=== PATIENT | female | born 1945 | race Caucasian/White ===

== ENCOUNTER 2019-02-11 01:30 | Emergency (ER) | payer MEDICARE, OTHER ==
[2019-02-11] MEDS ORDERED: IBUPROFEN 600 MG TAB PO STA (01:49)
[2019-02-11] MEDS ORDERED: ACETAMINOPHEN TAB 325 MG TAB PO STA (01:49)
[2019-02-11] MEDS: SODIUM CHLORIDE 0.9% 500 ML 500 ML IV SCH (02:02)
[2019-02-11 02:13] LABS: Appearance,Urine Cloudy (Clear); Bilirubin,Urine Negative (Negative); Blood,Urine Small (Negative); Color,Urine Light Yellow; Glucose,Urine (UA) Negative (Negative); HCT 43.2 % (34.0-46.0); HGB 13.8 gm/dL (11.4-16.0); Ketones,Urine Negative (Negative); Leukocyte Esterase,Urine Large (Negative); MCH 29.3 pg (25.0-35.0); MCV 91.5 fL (80.0-100.0); Mean Platelet Volume 7.2; Mucus,Urine Rare /hpf; Nitrite,Urine Negative (Negative); Platelet Count 103 k/uL (150-450); Protein,Urine Trace (Negative); RBC 4.72 m/uL (3.80-5.40); RBC,Urine 12 /hpf (0-5); RDW 14.6 % (11.5-15.5); Specific Gravity,Urine 1.011 (1.001-1.035); Squamous Epithelial Cell,Urine <1 /hpf (0-4); Urobilinogen,Urine <2.0 mg/dL (<2.0); WBC,Urine 156 /hpf (0-5)
[2019-02-11 02:15] LABS: Calcium 10.5 mg/dL (8.4-10.2); Potassium 4.5 mmol/L (3.5-5.1); Total Bilirubin 0.6 mg/dL (0.2-1.3); Total Protein 6.6 g/dL (6.3-8.2)
[2019-02-11 02:46] VITALS: BP 139/75; PULSE 101; RESP 18; TEMP 100.6
[2019-02-11 03:02] LABS: Lymphocytes # (M) 0.56 k/uL (1.0-4.8); Monocytes # (M) 0.72 k/uL (0-1.0); Neutrophils # (M) 6.72 k/uL (1.3-7.7); Neutrophils % (M) 84 %; Nucleated Red Blood Cells 0 /100 WBC (0-0); Total Cells Counted 100
[2019-02-11] MEDS ORDERED: SODIUM CHLORIDE 0.9% 1,000 ML IV ONE (03:18)
--- NOTE | 2019-02-11 03:26 | ED ---
Fever HPI - General Chief Complaint: Fever Stated Complaint: back pain Time Seen by Provider: 02/11/19 01:49 Source: patient, EMS Mode of arrival: EMS Limitations: no limitations - History of Present Illness Initial Comments: Michelle relatively healthy 74-year-old female who presents to the emergency department today for evaluation of concern for urinary tract infection and fever. Patient reports she was recently on an antibiotic for urinary tract infection, she states antibiotics or with the T but she can't remove her the name of and denies was trimethoprim. Patient reports that despite finishing antibiotics yesterday she still has urinary frequency dysuria and pain in her lower abdomen. Today she developed a fever and was concerned that she may have a kidney infection which prompted her to come to the ER for evaluation. was able to provide the antibiotic pill bottle, patient reports that she actually been prescribed for her gums due to an oral infection but was told she could take for urinary tract infection. Prescription was clindamycin. - Related Data Previous Rx's Medication Instructions Recorded Sulfamethox-Tmp 800-160Mg [Bactrim 1 tab PO Q12HR #14 tab 02/11/19 DS 800-160 mg] Allergies Allergy/AdvReac Type Severity Reaction Status Date / Time meperidine [From Demerol] AdvReac Unknown Verified 02/11/19 01:40 Review of Systems ROS Statement: Those systems with pertinent positive or pertinent negative responses have been documented in the HPI. ROS Other: All systems not noted in ROS Statement are negative. Past Medical History Past Medical History: CVA/TIA, Hyperlipidemia, Hypertension, Myocardial Infarction (OR) History of Any Multi-Drug Resistant Organisms: None Reported Past Surgical History: Coronary Bypass/CABG, Orthopedic Surgery Additional Past Surgical History / Comment(s): Partial right knee Smoking Status: Never smoker Past Alcohol Use History: None Reported Past Drug Use History: None Reported General Exam - General Exam Comments Initial Comments: Physical Exam GENERAL: Patient is well-developed and well-nourished. Patient is nontoxic and well- hydrated and is in no distress. HENT: Normocephalic, Atraumatic. EYES: PERRL, EOMI PULMONARY: Unlabored respirations. No audible rales rhonchi or wheezing was noted. CARDIOVASCULAR: There is a regular rate and rhythm without any murmurs gallops or rubs. ABDOMEN: Soft and nontender with normal bowel sounds. Tenderness to percussion of the flank SKIN: Skin is clear with no lesions or rashes and otherwise unremarkable. : Deferred NEUROLOGIC: Patient is alert and oriented x3. Moving all extremities spontaneously MUSCULOSKELETAL: Normal extremities with adequate strength and full range of motion. No lower extremity swelling or edema. No calf tenderness. PSYCHIATRIC: Normal psychiatric evaluation Limitations: no limitations Course Vital Signs 02/11/19 02/11/19 02/11/19 01:32 02:03 02:30 Temperature 100.5 F H 102.5 F H 100.6 F H Pulse Rate 108 H 101 H Respiratory 20 18 Rate Blood Pressure 159/79 139/75 O2 Sat by Pulse 95 95 Oximetry Medical Decision Making - Medical Decision Making The patient was seen and evaluated history is obtained from the patient and family at bedside 74-year-old female with a history of recurrent urinary tract infections was recently on antibiotics now presenting with persistent symptoms fever and one episode of vomiting prior to arrival patient does report that she has had GI upset due to being on antibiotics. Sepsis workup was initiated Tylenol Motrin IV fluids were ordered Urinalysis consistent with urinary tract infection culture was obtained and Rocephin was ordered was reevaluated, fevers 98.7 orally heart rates in the 90s, patient's feeling much better. Again I did offer the patient to stay in the hospital for further evaluation however she preferred to be discharged at this time. Patient will be prescribed Bactrim for urinary tract infection. Patient encouraged to follow up with her primary care physician by the end of the week for repeat urinalysis. Return parameters discussed with patient and all questions pertaining care answered patient discharged home in stable condition. - Lab Data Result diagrams: 02/11/19 01:55 02/11/19 01:55 Lab Results 02/11/19 02/11/19 02/11/19 Range/Units 01:55 01:55 01:55 WBC 8.0 (3.8-10.6) k/uL RBC 4.72 (3.80-5.40) m/uL Hgb 13.8 (11.4-16.0) gm/dL Hct 43.2 (34.0-46.0) % MCV 91.5 (80.0-100.0) fL MCH 29.3 (25.0-35.0) pg MCHC 32.0 (31.0-37.0) g/dL RDW 14.6 (11.5-15.5) % Plt Count 103 L (150-450) k/uL Neutrophils % (Manual) 84 % Lymphocytes % (Manual) 7 % Monocytes % (Manual) 9 % Neutrophils # (Manual) 6.72 (1.3-7.7) k/uL Lymphocytes # (Manual) 0.56 L (1.0-4.8) k/uL Monocytes # (Manual) 0.72 (0-1.0) k/uL Nucleated RBCs 0 (0-0) /100 WBC Manual Slide Review Performed PT (9.0-12.0) sec INR (<1.2) APTT (22.0-30.0) sec Sodium 138 (137-145) mmol/L Potassium 4.5 (3.5-5.1) mmol/L Chloride 109 H (98-107) mmol/L Carbon Dioxide 20 L (22-30) mmol/L Anion Gap 9 mmol/L BUN 25 H (7-17) mg/dL Creatinine 0.93 (0.52-1.04) mg/dL Est GFR (CKD-EPI)AfAm 72 (>60 ml/min/1.73 sqM) Est GFR (CKD-EPI)NonAf 62 (>60 ml/min/1.73 sqM) Glucose 120 H (74-99) mg/dL Plasma Lactic Acid Riccardo 2.1 H* (0.7-2.0) mmol/L Calcium 10.5 H (8.4-10.2) mg/dL Total Bilirubin 0.6 (0.2-1.3) mg/dL AST 46 H (14-36) U/L ALT 45 (9-52) U/L Alkaline Phosphatase 153 H (38-126) U/L Total Protein 6.6 (6.3-8.2) g/dL Albumin 4.0 (3.5-5.0) g/dL Urine Color Urine Appearance (Clear) Urine pH (5.0-8.0) Ur Specific [place] (1.001-1.035) Urine Protein (Negative) Urine Glucose (UA) (Negative) Urine Ketones (Negative) Urine Blood (Negative) Urine Nitrite (Negative) Urine Bilirubin (Negative) Urine Urobilinogen (<2.0) mg/dL Ur Leukocyte Esterase (Negative) Urine RBC (0-5) /hpf Urine WBC (0-5) /hpf Ur Squamous Epith Cells (0-4) /hpf Urine Mucus (None) /hpf 02/11/19 02/11/19 Range/Units 01:55 02:55 WBC (3.8-10.6) k/uL RBC (3.80-5.40) m/uL Hgb (11.4-16.0) gm/dL Hct (34.0-46.0) % MCV (80.0-100.0) fL MCH (25.0-35.0) pg MCHC (31.0-37.0) g/dL RDW (11.5-15.5) % Plt Count (150-450) k/uL Neutrophils % (Manual) % Lymphocytes % (Manual) % Monocytes % (Manual) % Neutrophils # (Manual) (1.3-7.7) k/uL Lymphocytes # (Manual) (1.0-4.8) k/uL Monocytes # (Manual) (0-1.0) k/uL Nucleated RBCs (0-0) /100 WBC Manual Slide Review PT 10.5 (9.0-12.0) sec INR 1.0 (<1.2) APTT 21.0 L (22.0-30.0) sec Sodium (137-145) mmol/L Potassium (3.5-5.1) mmol/L Chloride (98-107) mmol/L Carbon Dioxide (22-30) mmol/L Anion Gap mmol/L BUN (7-17) mg/dL Creatinine (0.52-1.04) mg/dL Est GFR (CKD-EPI)AfAm (>60 ml/min/1.73 sqM) Est GFR (CKD-EPI)NonAf (>60 ml/min/1.73 sqM) Glucose (74-99) mg/dL Plasma Lactic Acid Riccardo (0.7-2.0) mmol/L Calcium (8.4-10.2) mg/dL Total Bilirubin (0.2-1.3) mg/dL AST (14-36) U/L ALT (9-52) U/L Alkaline Phosphatase (38-126) U/L Total Protein (6.3-8.2) g/dL Albumin (3.5-5.0) g/dL Urine Color Light Yellow Urine Appearance Cloudy H (Clear) Urine pH 7.0 (5.0-8.0) Ur Specific [place] 1.011 (1.001-1.035) Urine Protein Trace H (Negative) Urine Glucose (UA) Negative (Negative) Urine Ketones Negative (Negative) Urine Blood Small H (Negative) Urine Nitrite Negative (Negative) Urine Bilirubin Negative (Negative) Urine Urobilinogen <2.0 (<2.0) mg/dL Ur Leukocyte Esterase Large H (Negative) Urine RBC 12 H (0-5) /hpf Urine WBC 156 H (0-5) /hpf Ur Squamous Epith Cells <1 (0-4) /hpf Urine Mucus Rare H (None) /hpf - EKG Data -: EKG Interpreted by Me EKG shows normal: sinus rhythm Rate: tachycardia EKG Comments: EKG was ordered for evaluation of tachycardia, EKG obtained at 1:45 AM, rate is 108 rhythm is sinus tachycardia, there is leftward axis there are normal intervals, IN 156, QRS 104, QTC 308, QTC 412 there are no acute ST elevations or depressions there are T-wave inversions in V5 and V6 no evidence of acute ischemia or infarction. Disposition Clinical Impression: UTI (urinary tract infection) Disposition: HOME SELF-CARE Condition: Stable Instructions (If sedation given, give patient instructions): Urinary Tract Infection in Women (DC), Fever in Adults (ED) Prescriptions: Sulfamethox-Tmp 800-160Mg [Bactrim DS 800-160 mg] 1 tab PO Q12HR #14 tab Is patient prescribed a controlled substance at d/c from ED?: No Referrals: Michael Mobley MD [Primary Care Provider] - 1-2 days
[2019-02-11 03:28] LABS: Prothrombin Time 10.5 sec (9.0-12.0)
== END 2019-02-11 04:55 | disposition home or self-care (01) ==
LOC: EC 01:30
DX: N39.0 Urinary tract infection, site not specified (principal); R00.0 Tachycardia, unspecified; K30 Functional dyspepsia; T36.8X5A Adverse effect of other systemic antibiotics, initial encounter; I25.2 Old myocardial infarction; Z88.5 Allergy status to narcotic agent; Z95.1 Presence of aortocoronary bypass graft; Z86.73 Personal history of transient ischemic attack (TIA), and cerebral infarction without residual deficits
CPT/HCPCS: 99284; 96360; 96361 ×2; 36415; 93005; 80053; 83605; 85025; 85610; 85730; 81001; 87040; 87086; 87077; 87186; J0696

== ENCOUNTER → 2019-03-14 | Outpatient (CLI) | payer MEDICARE, OTHER ==
--- NOTE | 2019-03-15 00:10 | US ---
EXAMINATION TYPE: US pelvic complete DATE OF EXAM: 03/14/2019 COMPARISON: NONE CLINICAL HISTORY: 74-year-old female R10.2 PELVIC PAIN. TECHNIQUE: Transvaginal (TV) and Transabdominal (TA) . Transabdominal sonographic images of the pel vis were acquired. Transvaginal sonographic images were medically necessary to better assess the fol lowing anatomy: Ovaries Date of LMP: 1983 FINDINGS: EXAM MEASUREMENTS: Uterus: Surgically absent Right Ovary: not visualized, probably due to atrophy Left Ovary: not visualized, probably due to atrophy 1. Uterus: Surgically absent 2. Endometrium: Surgically absent 3. Right Ovary: not visualized, due to probable atrophy 4. Left Ovary: not visualized, due to probable atrophy 5. Bilateral Adnexa: wnl 6. Posterior cul-de-sac: wnl IMPRESSION: 1. Status post post hysterectomy. 2. Neither ovary could be visualized, likely small and atrophic in this postmenopausal female. 3. No pelvic free fluid.
== END | disposition home or self-care (01) ==
LOC: RADUSWWP 15:52
PROVIDERS: ATTEND Obstetrics & Gynecology
DX: R10.2 Pelvic and perineal pain (principal); Z90.710 Acquired absence of both cervix and uterus
CPT/HCPCS: 76856

== ENCOUNTER → 2019-10-17 | Outpatient (CLI) | payer MEDICARE, OTHER ==
--- NOTE | 2019-10-17 13:37 | US ---
EXAMINATION TYPE: US venous doppler duplex LE LT DATE OF EXAM: 10/17/2019 1:07 PM COMPARISON: NONE CLINICAL HISTORY: M25.562 Pain Left Knee, M23.8x2 Other internal.... Left knee pain SIDE PERFORMED: Left TECHNIQUE: The lower extremity deep venous system is examined utilizing real time linear array sonog messi with graded compression, doppler sonography and color-flow sonography. VESSELS IMAGED: External Iliac Vein (EIV) Common Femoral Vein Deep Femoral Vein Greater Saphenous Vein * Femoral Vein Popliteal Vein Small Saphenous Vein * Proximal Calf Veins (* superficial vessels) Grayscale, color doppler, spectral doppler imaging performed of the deep veins of the lower extremiti es. There is normal flow, compressibility, vascular waveforms. Left Leg: Negative for DVT IMPRESSION: No sonographic evidence of deep venous thrombosis within the left lower extremity.
--- NOTE | 2019-10-17 14:20 | CT ---
EXAMINATION TYPE: CT lower extremity LT wo con DATE OF EXAM: 10/17/2019 COMPARISON: None. HISTORY: Left knee pain and internal derangement. CT DLP: 200 mGycm Automated exposure control for dose reduction was used. FINDINGS: Localizer shows metallic hardware from right knee rolando-plasty procedure. Left knee shows moderate to severe narrowing with joint space sclerosis and mild spurring medial tibi al femoral compartment. There is some subchondral cystic change medial tibial plateau measuring 6 mm transversely by 9 mm AP diameter on image 23 and sagittal image 13. Mild tibial condylar spurring. Mild narrowing centrally lateral tibiofemoral compartment. Osseous structures somewhat demineralized. Moderate narrowing and mild to moderate spurring patellofe moral compartment. There is additional spur from the anterior superior patella at distal quadriceps t endon attachment. There is fairly moderate sized suprapatellar joint effusion. No popliteal cyst. Distal quadriceps and patellar tendon are intact. Hoffa's fat pad is maintained. IMPRESSION: As above.
== END | disposition home or self-care (01) ==
LOC: RADUSWWP 12:46
PROVIDERS: ATTEND Family Medicine
DX: M81.0 Age-related osteoporosis without current pathological fracture (principal); M25.462 Effusion, left knee; M25.862 Other specified joint disorders, left knee; M23.8X2 Other internal derangements of left knee; M79.605 Pain in left leg

== ENCOUNTER → 2020-10-12 | Outpatient (CLI) | payer MEDICARE, OTHER ==
[2020-10-12 12:43] LABS: HCT 44.6 % (34.0-46.0); HGB 14.4 gm/dL (11.4-16.0); MCH 30.8 pg (25.0-35.0); MCHC 32.3 g/dL (31.0-37.0); MCV 95.3 fL (80.0-100.0); Platelet Count 237 k/uL (150-450); RBC 4.68 m/uL (3.80-5.40); RDW 13.6 % (11.5-15.5); WBC 7.2 k/uL (3.8-10.6)
[2020-10-12 12:53] LABS: Albumin 4.2 g/dL (3.5-5.0); Calcium 10.5 mg/dL (8.4-10.2); Potassium 4.7 mmol/L (3.5-5.1); Total Bilirubin 0.5 mg/dL (0.2-1.3); Total Protein 7.1 g/dL (6.3-8.2)
[2020-10-12 13:09] LABS: Partial Thromboplastin Time 22.9 sec (22.0-30.0); Prothrombin Time 10.5 sec (9.0-12.0)
[2020-10-12 19:12] LABS: Appearance,Urine Clear (Clear); Bilirubin,Urine Negative (Negative); Blood,Urine Negative (Negative); Color,Urine Light Yellow; Glucose,Urine (UA) Negative (Negative); Ketones,Urine Negative (Negative); Leukocyte Esterase,Urine Small (Negative); Nitrite,Urine Negative (Negative); PH, Urine 6.5 (5.0-8.0); Protein,Urine Negative (Negative); RBC,Urine <1 /hpf (0-5); Specific Gravity,Urine 1.008 (1.001-1.035); Squamous Epithelial Cell,Urine 1 /hpf (0-4); Urobilinogen,Urine <2.0 mg/dL (<2.0); WBC,Urine 1 /hpf (0-5)
== END | disposition home or self-care (01) ==
LOC: LABPAT 10:53
PROVIDERS: ATTEND Orthopaedic Surgery
DX: Z01.818 Encounter for other preprocedural examination (principal); Z01.812 Encounter for preprocedural laboratory examination
CPT/HCPCS: 36415; 80053; 81001; 85027; 85610; 85730; 87070

== ENCOUNTER 2020-10-27 07:47 | Day surgery (SDC) | payer MEDICARE, OTHER ==
[2020-10-22 15:24] VITALS: BMI 26.9
[~2020-10-27 07:47] MED LIST: ACETAMINOPHEN TAB 500 MG TAB PO PRN; DEXAMETHASONE SOD PHOSPHATE 4 MG/ML 1 ML VIAL IV ONE; GABAPENTIN 300 MG CAP PO PRN; HYDROmorphone 0.5 MG/0.5 ML SYRINGE IVP PRN; MELOXICAM 7.5 MG TAB PO PRN; MIDAZOLAM 2 MG/2 ML VIAL IV PRN; ONDANSETRON 4 MG/2 ML VIAL IVP ONE; TRANEXAMIC ACID 1,000 MG in SODIUM CHLORIDE 0.9% 100 ML IVPB PRN
[2020-10-27] MEDS: LACTATED RINGERS 1,000 ML IV SCH ×2 (08:46→22:30)
[2020-10-27] MEDS ORDERED: MIDAZOLAM 2 MG/2 ML VIAL IV ONE (08:53)
[2020-10-27] MEDS ORDERED: TRANEXAMIC ACID 1,000 MG/10 ML VIAL ONE (09:00)
[2020-10-27] MEDS ORDERED: fentaNYL (PF) 50 MCG/ML 2 ML AMP ONE (09:00)
[2020-10-27] MEDS ORDERED: SODIUM CHLORIDE 0.9% 100 ML BAG ONE (09:00)
[2020-10-27] MEDS ORDERED: PROPOFOL 10 MG/ML 20 ML VIAL IV ONE (09:00)
[2020-10-27] MEDS ORDERED: ceFAZolin 3,000 MG in SODIUM CHLORIDE 0.9% IRRIGATIO 3,000 ML IRRIGATION ONE (09:07)
[2020-10-27] MEDS ORDERED: bisacodyL 10 MG SUPP RECTAL PRN (09:13)
[2020-10-27] MEDS ORDERED: HYDROmorphone 0.2 MG/1 ML SYRINGE IVP PRN (09:13)
[2020-10-27] MEDS ORDERED: HYDROmorphone 0.5 MG/0.5 ML SYRINGE IVP PRN ×2 (09:13)
[2020-10-27] MEDS ORDERED: HYDROcodone/APAP 5-325MG 1 EACH TAB PO PRN (09:13)
[2020-10-27] MEDS ORDERED: NALOXONE 0.4 MG/ML 1 ML VIAL IV PRN ×2 (09:13→09:22)
[2020-10-27] MEDS ORDERED: ONDANSETRON 4 MG/2 ML VIAL IVP PRN (09:13)
[2020-10-27] MEDS ORDERED: NA PHOS,M-B/NA PHOS,DI-BA 133 ML ENEMA RECTAL PRN (09:13)
[2020-10-27] MEDS ORDERED: MAGNESIUM HYDROXIDE 2,400 MG/10 ML CUP PO PRN (09:13)
--- NOTE | 2020-10-27 09:24 | P.ANPRN ---
Procedure Note - Anesthesia - Nerve Block Performed Left Adductor Canal Infusion Time Out Performed: Yes Date of Procedure: 10/27/20 Procedure Start Time: 08:52 Procedure Stop Time: 09:00 Location of Patient: PreOp Indication: Acute Post-Operative Pain, Analgesia, Requested by Surgeon Sedation Type: Sedate with meaningful contact maintained Preparation: Sterile Prep Position: Supine Catheter: Indwelling Needle Types: Pajunk Needle Gauge: 21 Ultrasound used to visualize needle placement: Yes Ultrasound used to observe medication spread: Yes Injectate: 0.5% Ropivacaine (see comment for volume) Blood Aspirated: No Pain Paresthesia on Injection Noted: No Resistance on Injection: Normal Image Stored and Saved: Yes Events: Uneventful and Well Tolerated
[2020-10-27] MEDS: ROPIVACAINE 246.25 MG, EPINEPHrine 0.5 MG, KETOROLAC 30 MG, cloNIDine HCL/PF 80 MCG, WA... MISCELLANE PRN ×10 (09:31→09:50)
--- NOTE | 2020-10-27 10:12 | P.OP ---
Date of Procedure: 10/27/20 Preoperative Diagnosis: Severe osteoarthritis left knee Postoperative Diagnosis: Severe osteoarthritis left knee Procedure(s) Performed: Left total knee arthroplasty Implants: Peña [employer] Nephew Journey II CR Oxinium cruciate retaining femoral component size 4, left [employer]ña [employer] Journey nonporous tibial baseplate size 3, left [employer]ña [employer] Journey II, XLPE Deep Dished articular insert, size 11 mm, Size 3-4, left [employer]ña [employer] Journey Kathrin II resurfacing patellar component, oval, 29 mm All components were cemented using Palacos R bone cement The articulation is Oxinium on polyethylene Anesthesia: spinal Surgeon: Jase Barrett Heel Padder #1: Mariza Amaro Estimated Blood Loss (ml): 30 Pathology: other (Bone and cartilage) Condition: stable Disposition: PACU Indications for Procedure: After failure of conservative treatment we discussed the surgical and nonsurgical treatment options at length. Patient wishes to proceed with a total knee arthroplasty. Complications specific to this procedure were discussed at length, including but not limited to infection, bleeding, stiffness, and nerve injury. Covid-19 was also discussed at length with the patient, and they are aware of the current policies and procedures. The patient was given the option of delaying surgery, but they elect to proceed knowing these risks. Patient is aware of all these complications and informed consent was obtained Operative Findings: The operative findings are consistent with severe osteoarthritis of the left knee Description of Procedure: Patient was seen in the preoperative area and the consent was reviewed and the operative site was marked with a skin marker. The patient verified the procedure and the operative site. An adductor canal pain catheter was placed by anesthesia in the preoperative area. The patient was then brought to the operating room and given preoperative antibiotics intravenously. A gram of transexamic acid was given intravenously. A spinal anesthetic was administered by the anesthesia department. A tourniquet was placed on the upper thigh and the lower extremity was prepped with chlorhexidine and draped in usual sterile fashion. A universal timeout was then performed which confirmed the patient's name, surgical site, ALLERGIES, and consent. The lower extremity was then exsanguinated and tourniquet was inflated to 250 mmHg. A standard anterior midline approach to the knee was performed. The skin and subcutaneous tissue were sharply dissected down to the patellar tendon. A medial parapatellar arthrotomy was then performed. The knee was then extended, the patellar was everted, and the knee was again flexed. The infra-patellar fat pad was removed in order to enhance exposure. The anterior horns of both menisci were excised, and a release was performed to the posterior medial aspect of the knee. On gross visual inspection, there was complete loss of articular cartilage in the medial and patellofemoral joint spaces. There was also significant cartilage damage in the lateral compartment. There were multiple periarticular osteophytes globally about the knee which were then removed with a Ronguer. The femoral canal was then opened with the 9.5 mm intramedullary drill. The 8 mm intramedullary ronnie was then inserted into the femoral canal with the distal femoral cutting guide set for 5 of valgus. The distal femoral cutting block was then pinned in place. The intramedullary ronnie was then removed, and the distal femur was then cut. The cutting block was then removed and the cut was checked for symmetry. The resected bone was then measured to confirm the appropriate distal femoral resection. Next, the sizing guide was then placed and set for 3 external rotation based off of the epicondylar axis and Whitesides line. Pins were then placed and the drill holes, and the femur was sized with the sizing stylus. The pins were then removed, and the sizing guide was then removed. The spikes of the femoral block was then placed into the predrilled holes, and malleted into place. Two 45 mm pins were then placed into the fixation holes on the cutting block. An luis wing was then used to ensure there would be no notching with the anterior cut. The anterior condyles were cut without notching. The anterior chord cut was then performed, followed by the posterior cut, posterior chamfer cut, and the anterior chamfer cut. The collateral ligaments were protected during the entire process. The cutting block was then removed. Any remaining bone and osteophytes were removed from the femur with a Rominger. The femoral canal was plugged with autologous bone. Attention was then directed to the tibia. The remaining ACL was removed with a Ronguer, and the tibia was then gently subluxed forward with a large bent knee retractor. Any remaining menisci were excised. The posterior lateral corner was cauterized in order to coagulate the lateral geniculate artery. The extra medullary tibial cutting guide was then placed, set for the appropriate rotation, slope, and depth of resection. The proximal tibia cutting guide was then pinned in place. Proximal tibia was then cut and sized. The femoral trial was placed. A narrow saw blade was then used to remove the anterior intracondylar femoral bone. The CR notch trial was then placed. The tibial trial was placed with the appropriate-sized insert. The knee was able to fully extend and flex to 130 and was stable throughout all range of motion. The knee was then extended and the patella was everted. Patella was then measured, and then using an osteotomy guide, the patella was cut at the appropriate level. The patella was then measured and drilled and the patella trial was then placed. The knee was then taken through range of motion with the patella trial and the patella tracked normally using the no thumbs technique.. The knee was then extended patella trial was then removed and the patella was everted. Knee was then flexed and lug holes were drilled through the femoral trial and the femoral trial was then removed. The tibial was then re-exposed, and the tibial broach guide was then pinned in place after it was set for the appropriate rotation to allow for the most coverage without overhang. The tibia was then reamed and broached. The cut surfaces of bone were then irrigated with pulsatile lavage. The posterior structures were injected with the ropivacaine solution. The knee was also irrigated with Irrisept solution. The components were then opened, the cement was mixed, and the components were then cemented in place. The cement was allowed to harden with the knee in full extension. While the cement was hardening, the remaining soft tissues were then injected with a ropivacaine so lution, which consisted of 246.25 mg of ropivacaine, 0.5 mg of epinephrine, 30 mg of Toradol, 80 g of clonidine, and 48.45 mL of sterile water, for a total of 100 mL of fluid injected. After the cemented hardened. The tourniquet was released, and hemostasis was obtained. A second gram of transexamic acid was given intravenously. The knee was again irrigated. The knee was again taken through range of motion and found to be stable throughout all range of motion of 0-130, and the patella tracked normally. The fascia was then closed with 0 Vicryl followed by #2 strata fix suture. The subcutaneous tissue was closed with 3-0 Vicryl and 3-0 strata fix. Exofin glue was used for the skin and placed with the knee in flexion. After the glue had dried, and Optafoam silver impregnated dressing was applied. The patient was then transferred to recovery room in stable condition. The drafter assistant YG Benoit was required due the complexity surgery and the need for a skilled news production assistant. She assisted in positioning, draping, retraction, and closure of the wound.
[2020-10-27] MEDS ORDERED: ROPIVACAINE 0.2%-NS ON-Q PUMP 1,090 MG, EMPTY PAIN BALL 1 EACH MISCELLANE PRN (10:59)
--- NOTE | 2020-10-27 11:01 | XR ---
Left knee history: Status post knee arthroplasty 2 views of the left knee Patient is status post left knee arthroplasty. There is anatomic alignment. Lucency is present in the soft tissues. Surgical clips are present in the medial soft tissues. IMPRESSION: Orthopedic follow-up
[2020-10-27] MEDS: SODIUM CHLORIDE 0.9% 1,000 ML IV SCH ×2 (11:53→22:30)
[2020-10-27] MEDS ORDERED: LORazepam 1 MG TAB PO PRN (16:57)
[2020-10-27] MEDS: CALCIUM CARBONATE 500 MG CHEWABLE PO PRN ×2 (17:11→22:28)
[2020-10-27] MEDS: ASPIRIN 81 MG PO SCH (20:16)
[2020-10-27] MEDS: METOPROLOL TARTRATE 25 MG TAB PO SCH (20:16)
[2020-10-27] MEDS ORDERED: ATORVASTATIN 40 MG TAB PO SCH (21:00)
[2020-10-27] MEDS ORDERED: SENNOSIDES-DOCUSATE SODIUM 1 EACH TAB PO SCH (21:00)
[2020-10-28] MEDS: HYDROcodone/APAP 5-325MG 1 EACH TAB PO PRN ×3 (00:56→12:24)
--- NOTE | 2020-10-28 06:31 | P.PN ---
Progress Note - Text Progress Note Date: 10/28/20 Patient's postop day 1 from total knee replacement left side. Pain overnight has been controlled. She has used as needed pain medications for posterior knee pain. She also has pain over the anterior portion of the lower extremity. Ice is been helping. She's been able to ambulate. Pain pump is in place. Puncture site is clean and dry.
[2020-10-28] MEDS: METOPROLOL TARTRATE 25 MG TAB PO SCH (07:00)
[2020-10-28] MEDS: ASPIRIN 81 MG PO SCH (07:00)
[2020-10-28] MEDS: CALCIUM CARBONATE 500 MG CHEWABLE PO PRN (07:01)
[2020-10-28 07:44] VITALS: BP 154/74; PULSE 66; RESP 20; TEMP 97.6
--- NOTE | 2020-10-28 08:48 | P.DS ---
Providers Expected date of discharge: 10/28/20 Attending physician: Jase Barrett Consults: 10/27/20 09:13 Consult Physician Routine Consulting Provider: Jose Francisco Penaloza Consult Reason/Comments: medical management Do you want consulting provider notified?: Yes Primary care physician: Jase Ceballos - Discharge Diagnosis(es) (1) Osteoarthritis of left knee Current Visit: Yes Status: Acute (2) Status post total left knee replacement Current Visit: Yes Status: Acute Hospital Course: This is a 75-year-old female with known history of degenerative arthritis of the left knee. The patient presented for evaluation as an outpatient. After discussion and consideration patient elects to proceed with total knee arthroplasty. The patient is seen preoperatively by Dr. Barrett and medically cleared for surgery by their primary care physician. Patient is admitted to [facility] on 10/27/2020 for total knee arthroplasty. The procedure is performed without complication or sequelae. The patient is doing well postoperatively. Labs and vital signs are stable on day of discharge. On day of discharge patient's knee incision is healing well. There is minimal erythema. There is no drainage noted at this time. There is minimal soft tissu e swelling to the knee. Patient has full foot and ankle motion without difficulty or pain. Calf is soft and nontender to palpation. Neurovascular status to the left lower extremity is intact. Patient is discharged home in good condition. Opioid start talking form is reviewed and signed. Please see med rec for accurate list of home medications. Plan - Discharge Summary Discharge Rx Participant: Yes New Discharge Prescriptions: New Aspirin 325 mg PO BID #60 tab HYDROcodone/APAP 5-325MG [[place] 5-325] 1 - 2 tab PO Q6HR PRN #48 tab PRN Reason: Pain Sennosides [Senokot] 2 tab PO DAILY PRN #60 tablet PRN Reason: Constipation No Action Famotidine [Pepcid] 40 mg PO DAILY Atorvastatin [Lipitor] 40 mg PO HS amLODIPine [Norvasc] 2.5 mg PO 1600 Metoprolol Tartrate [Lopressor] 25 mg PO BID Cholecalciferol [Vitamin D3 (25 Mcg = 1000 Iu)] 25 mcg PO DAILY Aspirin 81 mg PO DAILY Clopidogrel Bisulfate [Plavix] 75 mg PO DAILY LORazepam [Ativan] 1 mg PO BID PRN PRN Reason: Anxiety Multivitamins, Thera [Multivitamin (formulary)] 1 tab PO DAILY Calcium Citrate/Vitamin D3 [Citracal + D Maximum Caplet] 1 each PO DAILY Nitrofurantoin Monohyd/M-Cryst [Macrobid] 100 mg PO WE Fluticasone Nasal [place] [Flonase Nasal [place]] 1 spray EA NOSTRIL HS PRN PRN Reason: allergies Mag Hydrox/Aluminum Hyd/Simeth [Mylanta Maximum Strength Liq] 0 ml PO DIRECTED PRN PRN Reason: Heartburn Discharge Medication List Aspirin 81 mg PO DAILY 04/22/20 [History] Atorvastatin [Lipitor] 40 mg PO HS 04/22/20 [History] Cholecalciferol [Vitamin D3 (25 Mcg = 1000 Iu)] 25 mcg PO DAILY 04/22/20 [History] Clopidogrel Bisulfate [Plavix] 75 mg PO DAILY 04/22/20 [History] Famotidine [Pepcid] 40 mg PO DAILY 04/22/20 [History] LORazepam [Ativan] 1 mg PO BID PRN 04/22/20 [History] Metoprolol Tartrate [Lopressor] 25 mg PO BID 04/22/20 [History] amLODIPine [Norvasc] 2.5 mg PO 1600 04/22/20 [History] Calcium Citrate/Vitamin D3 [Citracal + D Maximum Caplet] 1 each PO DAILY 10/22/20 [History] Multivitamins, Thera [Multivitamin (formulary)] 1 tab PO DAILY 10/22/20 [History] Nitrofurantoin Monohyd/M-Cryst [Macrobid] 100 mg PO WE 10/22/20 [History] Fluticasone Nasal [place] [Flonase Nasal [place]] 1 spray EA NOSTRIL HS PRN 10/26/20 [History] Mag Hydrox/Aluminum Hyd/Simeth [Mylanta Maximum Strength Liq] 0 ml PO DIRECTED PRN 10/26/20 [History] Aspirin 325 mg PO BID #60 tab 10/28/20 [Rx] HYDROcodone/APAP 5-325MG [[place] 5-325] 1 - 2 tab PO Q6HR PRN #48 tab 10/28/20 [Rx] Sennosides [Senokot] 2 tab PO DAILY PRN #60 tablet 10/28/20 [Rx] Follow up Appointment(s)/Referral(s): [facility], [NON-STAFF] - Jase Barrett DO [Doctor of Osteopathic Medicine] - 2 Weeks Activity/Diet/Wound Care/Special Instructions: Weightbearing as tolerated with a walker. CPM 5-6h daily as tolerated. Leave dressing intact. May be removed by home care nurse or by patient in 10 days. May shower with dressing on. Recommend use of compression stockings daily until follow up to help prevent swelling and blood clots. May remove at night before sleeping. Please take aspirin 325mg twice daily for 30 days to prevent blood clots. Please follow up with [facility] and call with any questions or concerns, . Discharge Disposition: HOME WITH HOME HEALTH SERVICES
[2020-10-28] MEDS ORDERED: CALCIUM CARB-VIT D 500 MG-5 MCG TAB PO SCH (09:00)
[2020-10-28] MEDS ORDERED: CHOLECALCIFEROL 25 MCG (1000 IU) TABLET PO SCH (09:00)
[2020-10-28] MEDS ORDERED: FAMOTIDINE 20 MG TAB PO SCH (09:00)
[2020-10-28] MEDS ORDERED: MULTIVITAMINS, THERA 1 EACH TAB PO SCH (09:00)
[2020-10-28] MEDS ORDERED: CLOPIDOGREL 75 MG TAB PO SCH (09:00)
[2020-10-28 11:21] LABS: HCT 31.8 % (37.2-46.3); MCH 30.7 pg (27.0-32.0); MCHC 31.4 g/dL (32.0-37.0); MCV 97.5 fL (80.0-97.0); Mean Platelet Volume 10.2 fL (9.5-12.2); Platelet Count 230 X 10*3/uL (140-440); RBC 3.26 X 10*6/uL (4.10-5.20); RDW 13.3 % (11.5-14.5)
--- NOTE | 2020-10-28 13:32 | P.CONS ---
History of Present Illness - History of Present Illness This is a pleasant 75 years old female with past medical history of hypertens ion, hyperlipidemia, osteoarthritis, CVA, history of ESBL UTI. Coronary artery disease status post CABG. He was admitted for elective left knee arthroplasty for her severe osteoarthritis that failed outpatient medical therapy. I saw the patient after the procedure and she is already been discharged by orthopedic team She was sitting in chair comfortable with no distress. She denies chest pain or dyspnea on no abdominal pain. She has chronic constipation. Her pain at the surgical site is controlled. Vital signs stable and she has mild leukocytosis of 13 K and mild anemia with hemoglobin 10 which is expected from surgery Review of Systems CONSTITUTIONAL: No fever, no malaise, no fatigue. HEENT: No recent visual problems or hearing problems. Denied any sore throat. CARDIOVASCULAR: No orthopnea, PND, no palpitations, no syncope. PULMONARY: No shortness of breath, no cough, no hemoptysis. GASTROINTESTINAL: No diarrhea, no nausea, no vomiting, no abdominal pain. Normoactive bowel sounds. NEUROLOGICAL: No headaches, no weakness, no numbness. HEMATOLOGICAL: Denies any bleeding or petechiae. GENITOURINARY: Denies any burning micturition, frequency, or urgency. MUSCULOSKELETAL/RHEUMATOLOGICAL: Denies any joint pain, swelling, or any muscle pain. ENDOCRINE: Denies any polyuria or polydipsia. Past Medical History Past Medical History: CVA/TIA, Hyperlipidemia, Hypertension, Myocardial Infarction (DE), Osteoarthritis (OA) Additional Past Medical History / Comment(s): Hx CVA-2013-no residual,stomach ulcer,chronic uti's Last Myocardial Infarction Date:: 2013 History of Any Multi-Drug Resistant Organisms: ESBL Year Discovered:: 02/11/19 MDRO Source:: urine ESBL Past Surgical History: Coronary Bypass/CABG, Hysterectomy, Orthopedic Surgery, Tonsillectomy Additional Past Surgical History / Comment(s): Partial right knee,CABG 2 014,partial hyst. Past Anesthesia/Blood Transfusion Reactions: No Reported Reaction Additional Past Anesthesia/Blood Transfusion Reaction / Comm: no problems with prior blood transfusion Past Psychological History: Anxiety Smoking Status: Never smoker Past Alcohol Use History: None Reported Past Drug Use History: None Reported - Past Family History Mother Family Medical History: Cancer Additional Family Medical History / Comment(s): breast CA,heart problems Father Additional Family Medical History / Comment(s): heart problems Medications and Allergies Home Medications Medication Instructions Recorded Confirmed Type Aspirin 81 mg PO DAILY 04/22/20 10/22/20 History Atorvastatin [Lipitor] 40 mg PO HS 04/22/20 10/22/20 History Cholecalciferol [Vitamin D3 (25 25 mcg PO DAILY 04/22/20 10/22/20 History Mcg = 1000 Iu)] Clopidogrel Bisulfate [Plavix] 75 mg PO DAILY 04/22/20 10/22/20 History Famotidine [Pepcid] 40 mg PO DAILY 04/22/20 10/22/20 History LORazepam [Ativan] 1 mg PO BID PRN 04/22/20 10/22/20 History Metoprolol Tartrate [Lopressor] 25 mg PO BID 04/22/20 10/22/20 History amLODIPine [Norvasc] 2.5 mg PO 1600 04/22/20 10/22/20 History Calcium Citrate/Vitamin D3 1 each PO DAILY 10/22/20 10/22/20 History [Citracal + D Maximum Caplet] Multivitamins, Thera [Multivitamin 1 tab PO DAILY 10/22/20 10/22/20 History (formulary)] Nitrofurantoin Monohyd/M-Cryst 100 mg PO WE 10/22/20 10/22/20 History [Macrobid] Fluticasone Nasal [place] [Flonase 1 spray EA NOSTRIL HS PRN 10/26/20 10/26/20 History Nasal [place]] Mag Hydrox/Aluminum Hyd/Simeth 0 ml PO DIRECTED PRN 10/26/20 10/26/20 History [Mylanta Maximum Strength Liq] Aspirin [Adult Low Dose Aspirin EC] 81 mg PO BID 30 Days #60 tablet. 10/28/20 Rx HYDROcodone/APAP 5-325MG [[place] 1 - 2 tab PO Q6HR PRN #48 tab 10/28/20 Rx 5-325] Sennosides [Senokot] 2 tab PO DAILY PRN #60 tablet 10/28/20 Rx Allergies Allergy/AdvReac Type Severity Reaction Status Date / Time meperidine [From Demerol] AdvReac hypotension Verified 10/27/20 08:09 Physical Exam Vitals: Vital Signs Temp Pulse Resp BP Pulse Ox 10/28/20 07:43 97.6 F 66 20 154/74 92 L 10/28/20 01:20 97.4 F L 75 16 139/74 94 L 10/27/20 19:08 98.0 F 71 17 138/76 96 Intake and Output 10/27/20 10/28/20 10/28/20 22:59 06:59 14:59 Other: Voiding Method Toilet Toilet # Voids 1 2 1 GENERAL: The patient is alert and oriented x3, not in any acute distress. Well developed, well nourished. HEENT: Pupils are round and equally reacting to light. EOMI. No scleral icterus. No conjunctival pallor. Normocephalic, atraumatic. No pharyngeal erythema. No thyromegaly. CARDIOVASCULAR: S1 and S2 present. No murmurs, rubs, or gallops. PULMONARY: Chest is clear to auscultation, no wheezing or crackles. ABDOMEN: Soft, nontender, nondistended, normoactive bowel sounds. No palpable organomegaly. MUSCULOSKELETAL: No joint swelling or deformity. -EXTREMITIES: No cyanosis, clubbing, or pedal edema. Status post left knee arthroplasty, surgical dressing is in a Place, rest of her examination is deferred to surgery team NEUROLOGICAL: Gross neurological examination did not reveal any focal deficits. SKIN: No rashes. No petechiae Results CBC & Chem 7: 10/28/20 06:17 Labs: Abnormal Lab Results - Last 24 Hours (Table) 10/28/20 Range/Units 06:17 WBC 13.00 H (4.50-10.00) X 10*3/uL RBC 3.26 L (4.10-5.20) X 10*6/uL Hgb 10.0 L (12.0-15.0) g/dL Hct 31.8 L (37.2-46.3) % MCV 97.5 H (80.0-97.0) fL MCHC 31.4 L (32.0-37.0) g/dL Assessment and Plan Assessment: Left knee arthroplasty for her left knee osteoarthritis that failed outpatient therapy Reactive leukocytosis secondary to surgery, no signs or symptoms of active infection, no need antibiotics. Follow-up as an outpatient Mild acute blood loss anemia secondary to surgery with drop of hemoglobin from 14 down to 10. Follow-up as an outpatient. Patient is asymptomatic currently Hypertension Hyperlipidemia History of ESBL UTI History of Coronary artery disease status post CABG Plan: This is a pleasant 75 years old female who presents with elective left knee arthroplasty. Monitor WBC as an outpatient. No need for antibiotics. Monitor hemoglobin. Patient is being discharged today by orthopedic team Labs and medication were reviewed.. Continue same treatment. Continue with symptomatic treatment. Resume home medication. Monitor lytes and vitals. DVT and GI prophylaxis as per primary team. Further recommendations depends on the clinical course of the patient Recommend patient follow up with PCP in one week and patient was instructed with the same Discussed with staff Thank you for consulting us, feel free to contact us for any further question or clarification
[2020-10-28 13:40] LABS: Basophils # (A) 0.02 X 10*3/uL (0.00-0.10); Basophils % (A) 0.2 %; Eosinophils # (A) 0.01 X 10*3/uL (0.04-0.35); Eosinophils % (A) 0.1 %; Lymphocytes # (A) 1.13 X 10*3/uL (0.90-5.00); Lymphocytes % (A) 8.7 %; Monocytes # (A) 1.55 X 10*3/uL (0.20-1.00); Monocytes % (A) 11.9 %; Neutrophils # (A) 10.25 X 10*3/uL (1.80-7.70); Neutrophils % (A) 78.8 %
[2020-10-28] MEDS ORDERED: amLODIPine 2.5 MG TAB PO SCH (16:00)
== END 2020-10-28 13:12 | disposition home health service (06) ==
LOC: OR 07:47 → 4SSUR 10:39 → OR 10-28 13:12
PROVIDERS: ATTEND Orthopaedic Surgery
DX: M17.12 Unilateral primary osteoarthritis, left knee (principal); M25.762 Osteophyte, left knee; D62 Acute posthemorrhagic anemia; D72.828 Other elevated white blood cell count; I25.10 Atherosclerotic heart disease of native coronary artery without angina pectoris; I11.9 Hypertensive heart disease without heart failure; E78.2 Mixed hyperlipidemia; F41.9 Anxiety disorder, unspecified; I25.2 Old myocardial infarction; Z88.5 Allergy status to narcotic agent; Z95.1 Presence of aortocoronary bypass graft; Z86.73 Personal history of transient ischemic attack (TIA), and cerebral infarction without residual deficits; Z79.82 Long term (current) use of aspirin; Z79.899 Other long term (current) drug therapy; Z79.02 Long term (current) use of antithrombotics/antiplatelets; Z90.710 Acquired absence of both cervix and uterus; Z96.651 Presence of right artificial knee joint; Z82.49 Family history of ischemic heart disease and other diseases of the circulatory system; Z86.19 Personal history of other infectious and parasitic diseases; Z80.3 Family history of malignant neoplasm of breast; Z87.440 Personal history of urinary (tract) infections; Z87.11 Personal history of peptic ulcer disease
CPT/HCPCS: 97110; 97161; 64448; 76942; 85025; 88300; 73560; 27447; C1713; C1776; J2250; J0171; J1100; J0690 ×3; J2405; J3010; J1885; J2795 ×2; J2704; J0735

== ENCOUNTER → 2020-11-11 | Outpatient (CLI) | payer MEDICARE, OTHER ==
--- NOTE | 2020-11-11 17:06 | US ---
EXAMINATION TYPE: US venous doppler duplex LE LT DATE OF EXAM: 11/11/2020 3:24 PM COMPARISON: NONE CLINICAL HISTORY: 75-year-old female Pain L knee M25.562, I80.9 plebitis/thrombophlebitis. Left knee surgery 9 days ago. On blood thinners. Swelling. SIDE PERFORMED: Left TECHNIQUE: The lower extremity deep venous system is examined utilizing real time linear array sonog messi with graded compression, doppler sonography and color-flow sonography. FINDINGS: VESSELS IMAGED: Common Femoral Vein Deep Femoral Vein Greater Saphenous Vein * Femoral Vein Popliteal Vein Small Saphenous Vein * Proximal Calf Veins (* superficial vessels) Left Leg: Negative for DVT IMPRESSION: No evidence for DVT within the left lower extremity imaged from the groin to the upper calf.
== END | disposition home or self-care (01) ==
LOC: RADUSWWP 15:06
PROVIDERS: ATTEND Orthopaedic Surgery
DX: M25.562 Pain in left knee (principal); E78.5 Hyperlipidemia, unspecified; I10 Essential (primary) hypertension; Z47.1 Aftercare following joint replacement surgery; Z96.652 Presence of left artificial knee joint; I80.9 Phlebitis and thrombophlebitis of unspecified site

== ENCOUNTER → 2021-05-26 | Outpatient (CLI) | payer MEDICARE, OTHER ==
--- NOTE | 2021-05-31 09:20 | MM ---
Reason for exam: screening (asymptomatic). Last mammogram was performed 1 year and 10 months ago. History: Family history of breast cancer in mother at age 80. Benign stereotactic core biopsy of the right breast. Physical Findings: A clinical breast exam by your physician is recommended on an annual basis and results should be correlated with mammographic findings. MG 3D Screening Mammo W/Cad Bilateral CC and MLO view(s) were taken. Prior study comparison: July 22, 2019, mammogram, performed at [facility]. April 02, 2018, mammogram, performed at [facility]. The breast tissue is heterogeneously dense. This may lower the sensitivity of mammography. Previous mammotome biopsy in the right breast. There is chronic nodularity in the right breast. No significant changes when compared with prior studies. ASSESSMENT: Benign, BI-RAD 2 RECOMMENDATION: Routine screening mammogram of both breasts in 1 year. Patient should continue monthly self breast exams. A negative report should not preclude additional follow up of suspicious palpable abnormalities.
== END | disposition home or self-care (01) ==
LOC: RADMAMWWP 11:05
PROVIDERS: ATTEND Obstetrics & Gynecology
DX: Z12.31 Encounter for screening mammogram for malignant neoplasm of breast (principal); Z80.3 Family history of malignant neoplasm of breast
CPT/HCPCS: 77063; 77067

== ENCOUNTER → 2021-11-15 | Outpatient (CLI) | payer MEDICARE, OTHER ==
--- NOTE | 2021-11-15 17:15 | XR ---
Lumbosacral spine HISTORY: Low back pain, left leg radiculopathy 5 views of lumbosacral spine, no comparisons Bone mineralization is reduced. There is multilevel spondylosis. Loss of disc height is greatest at L 5-S1 with associated vacuum phenomenon. Sclerosis is present in the posterior elements of the lumbar spine. Lumbar vertebral bodies show preserved height and alignment. No evident spondylolysis. There i s a slight dextro scoliosis centered at L3. IMPRESSION: Degenerative disc disease and facet arthropathy, osteopenia and scoliosis.
== END | disposition home or self-care (01) ==
LOC: RADXRYALE 13:32
PROVIDERS: ATTEND Family Medicine
DX: M51.16 Intervertebral disc disorders with radiculopathy, lumbar region (principal); M47.26 Other spondylosis with radiculopathy, lumbar region; M85.88 Other specified disorders of bone density and structure, other site; M41.86 Other forms of scoliosis, lumbar region
CPT/HCPCS: 72110

== ENCOUNTER → 2022-02-28 | Outpatient (CLI) | payer MEDICARE, OTHER ==
--- NOTE | 2022-02-28 15:54 | XR ---
Left foot HISTORY: Left foot pain 3 views of left foot Bone mineralization, joint spaces and alignment are maintained. Digits are flexed which could limit e valuation. There is osteoarthritic change at the tarsometatarsal joint of the first digit, associated soft tissue swelling is present. There is a small plantar calcaneus spur. No fracture or dislocation . IMPRESSION: Osteoarthritis.
== END | disposition home or self-care (01) ==
LOC: RADXRYALE 11:20
PROVIDERS: ATTEND Family Medicine
DX: M19.072 Primary osteoarthritis, left ankle and foot (principal)

== ENCOUNTER → 2022-05-31 | Outpatient (CLI) | payer MEDICARE, OTHER ==
--- NOTE | 2022-06-06 19:56 | MM ---
Reason for Exam: Screening (asymptomatic). Last screening mammogram was performed 12 month(s) ago. Patient History: Menarche at age 14. First Full-Term at age 23. Hysterectomy at age 36. Postmenopausal. Patient has history of breast feeding. Benign Stereotactic Core Biopsy on the right side. Mother had breast cancer, age 80. Risk Values: [place] 5 year model risk: 4.0%. NCI Lifetime model risk: 8.5%. Prior Study Comparison: 04/02/2018 Screening Mammogram, [facility]. 07/22/2019 Screening Mammogram, [facility]. 05/26/2021 Bilateral Screening Mammogram, [facility]. Tissue Density: The breast tissue is heterogeneously dense. This may lower the sensitivity of mammography. Findings: Analyzed By CAD. Benign vascular calcifications. Microclip right breast with an associated chronic area of nodularity lower quadrant right breast. No significant change from prior exams. Overall Assessment: Benign, BI-RAD 2 Management: Screening Mammogram of both breasts in 1 year. 1. Patient should continue monthly self breast exams. 2. A clinical breast exam by your physician is recommended on an annual basis. 3. This exam should not preclude additional follow-up of suspicious palpable abnormalities. Electronically signed and approved by: Irving Monroy M.D. Radiologist
== END | disposition home or self-care (01) ==
LOC: RADMAMWWP 09:53
PROVIDERS: ATTEND Obstetrics & Gynecology
DX: Z12.31 Encounter for screening mammogram for malignant neoplasm of breast (principal); Z78.0 Asymptomatic menopausal state; Z80.3 Family history of malignant neoplasm of breast; Z98.890 Other specified postprocedural states
CPT/HCPCS: 77063; 77067

== ENCOUNTER → 2022-06-30 | Outpatient (CLI) | payer MEDICARE, OTHER ==
[2022-06-30 19:28] LABS: Basophils # (A) 0.04 X 10*3/uL (0.00-0.10); Basophils % (A) 0.5 %; Eosinophils # (A) 0.13 X 10*3/uL (0.04-0.35); Eosinophils % (A) 1.8 %; HCT 41.9 % (37.2-46.3); HGB 13.8 g/dL (12.0-15.0); Immature Grans, Automated 0.3 %; Lymphocytes # (A) 1.47 X 10*3/uL (0.90-5.00); Lymphocytes % (A) 20.1 %; MCH 30.7 pg (27.0-32.0); MCHC 32.9 g/dL (32.0-37.0); MCV 93.1 fL (80.0-97.0); Mean Platelet Volume 10.1 fL (9.5-12.2); Monocytes # (A) 0.75 X 10*3/uL (0.20-1.00); Monocytes % (A) 10.3 %; NRBC Per 100 WBC 0 /100 WBCS (0.0-0.0); Platelet Count 283 X 10*3/uL (140-440); RDW 14.1 % (11.5-14.5); WBC 7.31 X 10*3/uL (4.50-10.00)
[2022-06-30 19:34] LABS: ALT 34 U/L (8-44); AST 27 U/L (13-35); African American GFR (CKD) 63.8 (60.0-200.0); Albumin 4.5 g/dL (3.8-4.9); Albumin/Globulin Ratio 1.88 (1.60-3.17); Alkaline Phosphatase 148 U/L (41-126); Blood Urea Nitrogen 18.3 mg/dL (9.0-27.0); Calcium 10.3 mg/dL (8.7-10.3); Carbon Dioxide 23.3 mmol/L (20.0-27.5); Chloride 103 mmol/L (96-109); Chol/HDL Ratio 3.48 Ratio; Globulin 2.4 g/dL (1.6-3.3); Glucose 107 mg/dL (70-110); LDL Cholesterol,Calculated 75.6 mg/dL (0.0-131.0); Non-African American GFR(CKD) 55.1 (60.0-200.0); Potassium 4.8 mmol/L (3.5-5.5); Sodium 139 mmol/L (135-145); Total Protein 6.9 g/dL (6.2-8.2)
== END | disposition home or self-care (01) ==
LOC: LABWHC1 10:57
PROVIDERS: ATTEND Internal Medicine Cardiovascular Disease
DX: I11.9 Hypertensive heart disease without heart failure (principal); I25.10 Atherosclerotic heart disease of native coronary artery without angina pectoris; I34.0 Nonrheumatic mitral (valve) insufficiency; I69.30 Unspecified sequelae of cerebral infarction; I65.22 Occlusion and stenosis of left carotid artery; E78.2 Mixed hyperlipidemia; R00.1 Bradycardia, unspecified; Z79.899 Other long term (current) drug therapy
CPT/HCPCS: 36415; 80053; 80061; 84443; 85025

== ENCOUNTER → 2022-08-03 | Outpatient (CLI) | payer MEDICARE, OTHER ==
--- NOTE | 2022-08-03 20:00 | CT ---
EXAMINATION TYPE: CT abdomen wo con CT DLP: 297.9 mGycm, Automated exposure control for dose reduction was used. DATE OF EXAM: 08/03/2022 5:43 PM COMPARISON: None CLINICAL INDICATION:Female, 77 years old with history of R10.812 LEFT UPPER QUADRANT A,R10.13,K21.00, K59.09; Epigastric and lower quadrant abdominal pain. Constipation and heart burn TECHNIQUE: Axial CT of the abdomen . Sagittal and coronal reformats were created on a separate works tation. Contrast used: None Oral contrast used: with Oral Contrast FINDINGS: LOWER CHEST: Heart is mildly enlarged for size. ABDOMEN LIVER: Unremarkable GALLBLADDER AND BILE DUCTS: Unremarkable. PANCREAS: Unremarkable. SPLEEN: Unremarkable. ADRENAL GLANDS: Unremarkable. KIDNEYS AND URETERS: No evidence of hydronephrosis or renal calculus. The ureters are unremarkable. STOMACH AND BOWEL: No evidence of bowel obstruction. Moderate hiatal hernia. Scattered clonic diverti cula present. PERITONEUM: No evidence of pneumoperitoneum or free fluid. VASCULATURE: No evidence of aortic aneurysm. Atherosclerosis of the arterial vasculature. MUSCULOSKELETAL: No acute osseous abnormalities, multilevel disc degeneration changes throughout the spine. LYMPH NODES: No gross evidence for lymphadenopathy. SOFT TISSUE/ABDOMINAL WALL: Small fat-containing umbilical hernia. IMPRESSION: 1. No evidence for acute abdominal process. 2. Mild colonic diverticulosis.
== END | disposition home or self-care (01) ==
LOC: RADCTMAIN 16:46
PROVIDERS: ATTEND Family Medicine
DX: K21.00 Gastro-esophageal reflux disease with esophagitis, without bleeding (principal); K57.30 Diverticulosis of large intestine without perforation or abscess without bleeding; K59.09 Other constipation; R10.812 Left upper quadrant abdominal tenderness
CPT/HCPCS: 74150; Q9967

== ENCOUNTER 2022-08-20 05:08 | Observation (INO) | payer MEDICARE, OTHER ==
[2022-08-20 05:12] VITALS: RESP 18
[2022-08-20] MEDS ORDERED: MORPHINE SULFATE 4 MG/ML SYRINGE IV STA (05:53)
[2022-08-20] MEDS ORDERED: SODIUM CHLORIDE 0.9% 1,000 ML IV STA (05:53)
[2022-08-20] MEDS ORDERED: PANTOPRAZOLE 40 MG/10 ML VIAL IVP STA (05:53)
[2022-08-20] MEDS ORDERED: ONDANSETRON 4 MG/2 ML VIAL IVP STA (05:53)
--- NOTE | 2022-08-20 05:55 | ED ---
Nausea/Vomiting/Diarrhea HPI - General Source: patient, RN notes reviewed, old records reviewed Mode of arrival: ambulatory Limitations: no limitations - History of Present Illness MD complaint: nausea, vomiting, diarrhea, abdominal pain, other (blood in stool) -: days(s) Description of Vomiting: watery Description of Diarrhea: mucous Associated Abdominal Pain: Yes Location: diffuse Radiation: none Severity: moderate Severity scale (1-10): 4 Consistency: intermittent Improves with: none Worsens with: none Associated Symptoms: loss of appetite, nausea/vomiting, weakness <Jose Luis Beck - Last Filed: 08/20/22 07:06> <Jose Luis Rocha - Last Filed: 08/20/22 08:33> - General Chief complaint: Nausea/Vomiting/Diarrhea Stated complaint: Vomiting - History of Present Illness Initial comments: This is a 77-year-old female DF for evaluation. Patient is multiple complaints including abdominal pain nausea vomiting and diarrhea. No recent antibiotic use no fevers. No brittle bodyaches and pains. Patient is no travel history no significant sick contacts or patients of family members with similar complaintpatient states that shoulder stomach in the past but no significant surgeries patient is also having blood in stool having clots with some bright red bleeding. Originally started with some constipation unchanged to diarrhea and then changed to blood (Jose Luis Beck) - Related Data Home Medications Medication Instructions Recorded Confirmed Aspirin 81 mg PO DAILY 04/22/20 10/22/20 Atorvastatin [Lipitor] 40 mg PO HS 04/22/20 10/22/20 Cholecalciferol [Vitamin D3 (25 25 mcg PO DAILY 04/22/20 10/22/20 Mcg = 1000 Iu)] Clopidogrel Bisulfate [Plavix] 75 mg PO DAILY 04/22/20 10/22/20 Famotidine [Pepcid] 40 mg PO DAILY 04/22/20 10/22/20 LORazepam [Ativan] 1 mg PO BID PRN 04/22/20 10/22/20 Metoprolol Tartrate [Lopressor] 25 mg PO BID 04/22/20 10/22/20 amLODIPine [Norvasc] 2.5 mg PO 1600 04/22/20 10/22/20 Calcium Citrate/Vitamin D3 1 each PO DAILY 10/22/20 10/22/20 [Citracal + D Maximum Caplet] Multivitamins, Thera [Multivitamin 1 tab PO DAILY 10/22/20 10/22/20 (formulary)] Nitrofurantoin Monohyd/M-Cryst 100 mg PO WE 10/22/20 10/22/20 [Macrobid] Fluticasone Nasal [place] [Flonase 1 spray EA NOSTRIL HS PRN 10/26/20 10/26/20 Nasal [place]] Mag Hydrox/Aluminum Hyd/Simeth 0 ml PO DIRECTED PRN 10/26/20 10/26/20 [Mylanta Maximum Strength Liq] Previous Rx's Medication Instructions Recorded Aspirin [Adult Low Dose Aspirin EC] 81 mg PO BID 30 Days #60 tablet. 10/28/20 HYDROcodone/APAP 5-325MG [[place] 1 - 2 tab PO Q6HR PRN #48 tab 10/28/20 5-325] Sennosides [Senokot] 2 tab PO DAILY PRN #60 tablet 10/28/20 Allergies Allergy/AdvReac Type Severity Reaction Status Date / Time meperidine [From Demerol] AdvReac hypotension Verified 08/20/22 05:12 Review of Systems ROS Other: All systems not noted in ROS Statement are negative. <Jose Luis Beck - Last Filed: 08/20/22 07:06> ROS Other: All systems not noted in ROS Statement are negative. <Jose Luis Rocha - Last Filed: 08/20/22 08:33> ROS Statement: Those systems with pertinent positive or pertinent negative responses have been documented in the HPI. Past Medical History Past Medical History: CVA/TIA, Hyperlipidemia, Hypertension, Myocardial Infarction ([place]) Additional Past Medical History / Comment(s): having "trouble with my stomach",CVA-2013-no residual Last Myocardial Infarction Date:: 2013 History of Any Multi-Drug Resistant Organisms: ESBL Date of last positivie culture/infection: 02/11/19 MDRO Source:: urine ESBL Past Surgical History: Coronary Bypass/CABG, Hysterectomy, Orthopedic Surgery, Tonsillectomy Additional Past Surgical History / Comment(s): Partial right knee,CABG 2013 Past Anesthesia/Blood Transfusion Reactions: No Reported Reaction Additional Past Anesthesia/Blood Transfusion Reaction / Comment(s): no problems with prior blood transfusion Past Psychological History: No Psychological Hx Reported Smoking Status: Never smoker Past Alcohol Use History: None Reported Past Drug Use History: None Reported - Past Family History Mother Family Medical History: Cancer Additional Family Medical History / Comment(s): breast CA,heart problems Father Additional Family Medical History / Comment(s): heart problems <Jose Luis Beck - Last Filed: 08/20/22 07:06> General Exam Limitations: no limitations General appearance: alert, in no apparent distress Head exam: Present: atraumatic, normocephalic, normal inspection Eye exam: Present: normal appearance, PERRL, EOMI. Absent: scleral icterus, conjunctival injection, periorbital swelling ENT exam: Present: normal exam, mucous membranes moist Neck exam: Present: normal inspection. Absent: tenderness, meningismus, lymphadenopathy Respiratory exam: Present: normal lung sounds bilaterally. Absent: respiratory distress, wheezes, rales, rhonchi, stridor Cardiovascular Exam: Present: regular rate, normal rhythm, normal heart sounds. Absent: systolic murmur, diastolic murmur, rubs, gallop, clicks GI/Abdominal exam: Present: soft, normal bowel sounds. Absent: distended, tenderness, guarding, rebound, rigid Extremities exam: Present: normal inspection, full ROM, normal capillary refill. Absent: tenderness, pedal edema, joint swelling, calf tenderness Back exam: Present: normal inspection Neurological exam: Present: alert, oriented X3, CN II-XII intact Psychiatric exam: Present: normal affect, normal mood Skin exam: Present: warm, dry, intact, normal color. Absent: rash <Jose Luis Beck - Last Filed: 08/20/22 07:06> Course <Jose Luis Beck - Last Filed: 08/20/22 07:06> Vital Signs 08/20/22 08/20/22 05:09 07:45 Temperature 97.4 F L Pulse Rate 72 66 Respiratory 18 18 Rate Blood Pressure 129/78 151/74 O2 Sat by Pulse 95 95 Oximetry - Reevaluation(s) Reevaluation #1: 08/20/22 05:55 Medical records reviewed (Jose Luis Beck) Reevaluation #2: 08/20/22 06:58 patient symptoms are improved (Jose Luis Beck) Medical Decision Making - Lab Data Result diagrams: 08/20/22 06:23 08/20/22 06:23 <Jose Luis Beck - Last Filed: 08/20/22 07:06> - Lab Data Result diagrams: 08/20/22 06:23 08/20/22 06:23 <Jose Luis Rocha - Last Filed: 08/20/22 08:33> - Medical Decision Making CT of the abdomen and pelvis was interpreted by me. CT showed some inflammation of the colon in the descending and sigmoid colon. I spoke with Dr. Doyle she states that she will be on consult for this patient. I spoke with some physicians agreed to admit the patient admitted the patient wrote admitting orders. (Jose Luis Rocha) - Lab Data Lab Results 08/20/22 08/20/22 08/20/22 Range/Units 06:23 06:23 06:23 WBC 5.7 (3.8-10.6) k/uL RBC 4.37 (3.80-5.40) m/uL Hgb 13.1 (11.4-16.0) gm/dL Hct 40.1 (34.0-46.0) % MCV 91.9 (80.0-100.0) fL MCH 30.1 (25.0-35.0) pg MCHC 32.7 (31.0-37.0) g/dL RDW 13.4 (11.5-15.5) % Plt Count 101 L (150-450) k/uL MPV 8.4 Neutrophils % 85 % Lymphocytes % 8 % Monocytes % 6 % Eosinophils % 1 % Basophils % 0 % Neutrophils # 4.8 (1.3-7.7) k/uL Lymphocytes # 0.4 L (1.0-4.8) k/uL Monocytes # 0.4 (0-1.0) k/uL Eosinophils # 0.0 (0-0.7) k/uL Basophils # 0.0 (0-0.2) k/uL PT 9.8 (9.0-12.0) sec INR 0.9 (<1.2) APTT 19.0 L (22.0-30.0) sec Sodium 135 L (137-145) mmol/L Potassium 4.6 (3.5-5.1) mmol/L Chloride 106 (98-107) mmol/L Carbon Dioxide 20 L (22-30) mmol/L Anion Gap 9 mmol/L BUN 27 H (7-17) mg/dL Creatinine 0.99 (0.52-1.04) mg/dL Est GFR (CKD-EPI)AfAm 65 (>60 ml/min/1.73 sqM) Est GFR (CKD-EPI)NonAf 56 (>60 ml/min/1.73 sqM) Glucose 148 H (74-99) mg/dL Plasma Lactic Acid Riccardo (0.7-2.0) mmol/L Calcium 8.5 (8.4-10.2) mg/dL Total Bilirubin 0.6 (0.2-1.3) mg/dL AST 56 H (14-36) U/L ALT 45 H (4-34) U/L Alkaline Phosphatase 114 (38-126) U/L Total Protein 6.7 (6.3-8.2) g/dL Albumin 4.1 (3.5-5.0) g/dL Amylase 180 H (30-110) U/L Lipase 74 (23-300) U/L 08/20/22 Range/Units 06:23 WBC (3.8-10.6) k/uL RBC (3.80-5.40) m/uL Hgb (11.4-16.0) gm/dL Hct (34.0-46.0) % MCV (80.0-100.0) fL MCH (25.0-35.0) pg MCHC (31.0-37.0) g/dL RDW (11.5-15.5) % Plt Count (150-450) k/uL MPV Neutrophils % % Lymphocytes % % Monocytes % % Eosinophils % % Basophils % % Neutrophils # (1.3-7.7) k/uL Lymphocytes # (1.0-4.8) k/uL Monocytes # (0-1.0) k/uL Eosinophils # (0-0.7) k/uL Basophils # (0-0.2) k/uL PT (9.0-12.0) sec INR (<1.2) APTT (22.0-30.0) sec Sodium (137-145) mmol/L Potassium (3.5-5.1) mmol/L Chloride (98-107) mmol/L Carbon Dioxide (22-30) mmol/L Anion Gap mmol/L BUN (7-17) mg/dL Creatinine (0.52-1.04) mg/dL Est GFR (CKD-EPI)AfAm (>60 ml/min/1.73 sqM) Est GFR (CKD-EPI)NonAf (>60 ml/min/1.73 sqM) Glucose (74-99) mg/dL Plasma Lactic Acid Riccardo 1.1 (0.7-2.0) mmol/L Calcium (8.4-10.2) mg/dL Total Bilirubin (0.2-1.3) mg/dL AST (14-36) U/L ALT (4-34) U/L Alkaline Phosphatase (38-126) U/L Total Protein (6.3-8.2) g/dL Albumin (3.5-5.0) g/dL Amylase (30-110) U/L Lipase (23-300) U/L Disposition <Jose Luis Beck - Last Filed: 08/20/22 07:06> Time of Disposition: 08:33 <Jose Luis Rocha - Last Filed: 08/20/22 08:33> Clinical Impression: Colitis, Acute vomiting Disposition: ADMITTED IP TO THIS HOSP Referrals: Jase Ceballos DO [Primary Care Provider] - 1-2 days
[2022-08-20 06:35] LABS: Basophils % (A) 0 %; Eosinophils % (A) 1 %; HCT 40.1 % (34.0-46.0); HGB 13.1 gm/dL (11.4-16.0); Lymphocytes # (A) 0.4 k/uL (1.0-4.8); Lymphocytes % (A) 8 %; MCH 30.1 pg (25.0-35.0); MCHC 32.7 g/dL (31.0-37.0); MCV 91.9 fL (80.0-100.0); Mean Platelet Volume 8.4; Monocytes # (A) 0.4 k/uL (0-1.0); Monocytes % (A) 6 %; Neutrophils # (A) 4.8 k/uL (1.3-7.7); Neutrophils % (A) 85 %; Platelet Count 101 k/uL (150-450); RBC 4.37 m/uL (3.80-5.40); RDW 13.4 % (11.5-15.5); WBC 5.7 k/uL (3.8-10.6)
[2022-08-20 06:49] LABS: Albumin 4.1 g/dL (3.5-5.0); Calcium 8.5 mg/dL (8.4-10.2); Total Bilirubin 0.6 mg/dL (0.2-1.3); Total Protein 6.7 g/dL (6.3-8.2)
[2022-08-20 06:51] LABS: INR 0.9 (<1.2); Prothrombin Time 9.8 sec (9.0-12.0)
[2022-08-20 06:54] LABS: Potassium 4.6 mmol/L (3.5-5.1)
--- NOTE | 2022-08-20 07:33 | CT ---
EXAMINATION TYPE: CT abdomen pelvis wo con DATE OF EXAM: 08/20/2022 COMPARISON: 08/03/2022 HISTORY: [place] and Diarrhea, pelvic pain, blood in stool CT DLP: 498.8 mGycm Automated exposure control for dose reduction was used. Images obtained from the diaphragm to the floor of the pelvis with no contrast. There is some interstitial infiltrate and subsegmental atelectasis at the lung bases. No pleural effu crissy. Heart is enlarged. No pericardial effusion. There is hiatal hernia. There are small calcified g allstones. Spleen is intact. No evidence of pancreatic mass. There is no adrenal mass. The bile ducts are not dilated. Kidneys show normal size and contour. No hy dronephrosis. Ureters are not dilated. No retroperitoneal adenopathy. The bladder distends smoothly. No inguinal hernia. No free fluid in the pelvis. There are sigmoid diverticula. No diverticulitis. Ap pendix is posterior and appears normal. There is some wall thickening of the mid sigmoid colon and th e descending colon. There is small amount of fluid in the left paracolic gutter. The lumbar vertebrae have normal alignment. No compression fracture. There is narrowing of L5-S1 dis c space. Bony pelvis is intact. The hip joints are intact. IMPRESSION: There is some wall thickening of the descending and sigmoid colon suggestive of some nonspecific coli tis. This appears new compared to old exam. There is colonic diverticulosis without diverticulitis. Hiatal hernia.
[2022-08-20] MEDS ORDERED: SODIUM CHLORIDE 0.9% 1,000 ML IV ONE (08:40)
[2022-08-20] MEDS ORDERED: ONDANSETRON 4 MG/2 ML VIAL IVP PRN (08:43)
[2022-08-20] MEDS ORDERED: SODIUM CHLORIDE 0.9% 1,000 ML IV SCH (08:45)
[2022-08-20 09:47] LABS: HCT 40.2 % (34.0-46.0); HGB 13.2 gm/dL (11.4-16.0); MCH 30.1 pg (25.0-35.0); MCHC 32.8 g/dL (31.0-37.0); MCV 91.8 fL (80.0-100.0); Mean Platelet Volume 8.6; RBC 4.37 m/uL (3.80-5.40); RDW 13.8 % (11.5-15.5); WBC 6.3 k/uL (3.8-10.6)
[2022-08-20 09:55] LABS: Platelet Count 157 k/uL (150-450)
[2022-08-20] MEDS ORDERED: MORPHINE SULFATE 2 MG/ML SYRINGE IVP PRN (10:33)
[2022-08-20 12:46] LABS: Band Neutrophils % 4 %; Lymphocytes # (M) 0.32 k/uL (1.0-4.8); Monocytes # (M) 0.32 k/uL (0-1.0); Neutrophils % (M) 86 %; Nucleated Red Blood Cells 0 /100 WBC (0-0); RBC Morphology Normal; Total Cells Counted 100
[2022-08-20] MEDS ORDERED: LORazepam 1 MG TAB PO PRN (15:19)
--- NOTE | 2022-08-20 15:55 | P.HPIM ---
History of Present Illness H&P Date: 08/20/22 This note will serve his H&P along with discharge summary. Patient is a 77-year-old female with PMH of CVA, hypertension, dyslipidemia, CAD and presents the ED for abdominal pain, nausea and vomiting. Patient reports lower abdominal pain started yesterday. Pain is crampy in nature, 3 out of 10 in severity. Abdominal pain was associated with nausea and one episode of vomiting. She also reported 6 bloody bowel movements, bright red blood along with diarrhea yesterday. These symptoms prompted her to come to the ED. Today, she has had 2 bowel movements which are normal. Patient denies any headache, lower extremity edema, fever chills, cough, chest pain, shortness breath, palpitations, changes in urination. She reports a decreased appetite. She denies any dizziness, numbness/weakness/tingling of the extremities. In the ED, her vital signs are stable. She was afebrile. CBC showed platelet count 101. Hemoglobin of 13.1. INR was 0.9. CMP showed sodium 135, bicarb of 20, BUN of 27, glucose 148, AST 56, ALT of 45 and amylase of 180. Lipase negative. CTAP shows some wall thickening of the descending and sigmoid colon suggestive of colitis. Patient was admitted for observation with surgery consultation. Pertinent positives and negatives as discussed in HPI, a complete review of systems was performed and all other systems are negative. General: non toxic, no distress, appears at stated age Derm: warm, dry Head: atraumatic, normocephalic, symmetric Eyes: EOMI, no lid lag, anicteric sclera Mouth: no lip lesion, mucus membranes moist Cardiovascular: S1S2 reg, no murmur, positive posterior tibial pulse bilateral Lungs: CTA bilateral, no rhonchi, no rales , no accessory muscle use Abdominal: soft, nontender to palpation, no guarding, no appreciable organomegaly Ext: no gross muscle atrophy, no edema, no contractures Neuro: no focal neuro deficits Psych: Alert, oriented, appropriate affect Discharge diagnoses: #Lower GI bleed #Colitis #Prerenal azotemia #Transaminitis Chronic conditions: History of CVA, hypertension, dyslipidemia, CAD Patient has had 2 hemoglobins that have been stable. She has had 2 bowel movements which is described as normal. Patient states that she would like to go home. Her colitis is self-limiting. She is hemodynamically stable. She has no leukocytosis. No indication for antibiotics. She is encouraged hydration by mouth. Her last colonoscopy was 5 years ago, normal. She is advised to follow-up with her PCP after resolution of her colitis for routine surveillance of colon cancer. She is advised to come back to the ED for worsening abdominal pain, intractable nausea and vomiting, bright red blood per rectum. Patient and verbalized understanding of the plan. Past Medical History Past Medical History: CVA/TIA, Hyperlipidemia, Hypertension, Myocardial Infarction ([place]) Additional Past Medical History / Comment(s): having "trouble with my s tomach",CVA-2013-no residual Last Myocardial Infarction Date:: 2013 History of Any Multi-Drug Resistant Organisms: ESBL Date of last positivie culture/infection: 02/11/19 MDRO Source:: urine ESBL Past Surgical History: Coronary Bypass/CABG, Hysterectomy, Orthopedic Surgery, T onsillectomy Additional Past Surgical History / Comment(s): Partial right knee,CABG 2013 Past Anesthesia/Blood Transfusion Reactions: No Reported Reaction Additional Past Anesthesia/Blood Transfusion Reaction / Comment(s): no problems with prior blood transfusion Past Psychological History: No Psychological Hx Reported Smoking Status: Never smoker Past Alcohol Use History: None Reported Past Drug Use History: None Reported - Past Family History Mother Family Medical History: Cancer Additional Family Medical History / Comment(s): breast CA,heart problems Father Additional Family Medical History / Comment(s): heart problems Medications and Allergies Home Medications Medication Instructions Recorded Confirmed Type Atorvastatin [Lipitor] 40 mg PO HS 04/22/20 08/20/22 History Clopidogrel Bisulfate [Plavix] 75 mg PO DAILY 04/22/20 08/20/22 History Famotidine [Pepcid] 40 mg PO DAILY 04/22/20 08/20/22 History LORazepam [Ativan] 1 mg PO BID PRN 04/22/20 08/20/22 History Metoprolol Tartrate [Lopressor] 25 mg PO BID 04/22/20 08/20/22 History Multivitamins, Thera [Multivitamin 1 tab PO DAILY 10/22/20 08/20/22 History (formulary)] Nitrofurantoin Monohyd/M-Cryst 100 mg PO WE 10/22/20 08/20/22 History [Macrobid] Aspirin [Adult Low Dose Aspirin EC] 81 mg PO DAILY 08/20/22 08/20/22 History Cholecalciferol [Vitamin D3 (25 50 mcg PO DAILY 08/20/22 08/20/22 History Mcg = 1000 Iu)] Losartan Potassium [Cozaar] 100 mg PO DAILY 08/20/22 08/20/22 History Pantoprazole [Protonix] 40 mg PO DAILY 08/20/22 08/20/22 History Vitamin B Complex 1 cap PO DAILY 08/20/22 08/20/22 History amLODIPine [Norvasc] 5 mg PO DAILY 08/20/22 08/20/22 History Allergies Allergy/AdvReac Type Severity Reaction Status Date / Time meperidine [From Demerol] AdvReac hypotension Verified 08/20/22 11:40 Physical Exam Vitals: Vital Signs Temp Pulse Resp BP Pulse Ox 08/20/22 12:41 18 08/20/22 11:31 71 18 148/67 95 08/20/22 07:45 66 18 151/74 95 08/20/22 05:09 97.4 F L 72 18 129/78 95 Intake and Output 08/20/22 08/20/22 08/20/22 06:59 14:59 22:59 Other: Weight 68.039 kg Results CBC & Chem 7: 08/20/22 09:16 08/20/22 06:23 Labs: Abnormal Lab Results - Last 24 Hours (Table) 08/20/22 08/20/22 08/20/22 Range/Units 06:23 06:23 06:23 Plt Count 101 L (150-450) k/uL Lymphocytes # 0.4 L (1.0-4.8) k/uL Lymphocytes # (Manual) (1.0-4.8) k/uL APTT 19.0 L (22.0-30.0) sec Sodium 135 L (137-145) mmol/L Carbon Dioxide 20 L (22-30) mmol/L BUN 27 H (7-17) mg/dL Glucose 148 H (74-99) mg/dL AST 56 H (14-36) U/L ALT 45 H (4-34) U/L Amylase 180 H (30-110) U/L 08/20/22 Range/Units 09:16 Plt Count (150-450) k/uL Lymphocytes # (1.0-4.8) k/uL Lymphocytes # (Manual) 0.32 L (1.0-4.8) k/uL APTT (22.0-30.0) sec Sodium (137-145) mmol/L Carbon Dioxide (22-30) mmol/L BUN (7-17) mg/dL Glucose (74-99) mg/dL AST (14-36) U/L ALT (4-34) U/L Amylase (30-110) U/L
[2022-08-20 16:33] VITALS: BP 133/64; PULSE 70; TEMP 98
[2022-08-20] MEDS ORDERED: METOPROLOL TARTRATE 25 MG TAB PO SCH (21:00)
[2022-08-20] MEDS ORDERED: ATORVASTATIN 40 MG TAB PO SCH (21:00)
[2022-08-21] MEDS ORDERED: PANTOPRAZOLE 40 MG TABLET PO SCH (07:30)
[2022-08-21] MEDS ORDERED: amLODIPine 5 MG TAB PO SCH (09:00)
[2022-08-21] MEDS ORDERED: FAMOTIDINE 20 MG TAB PO SCH (09:00)
[2022-08-21] MEDS ORDERED: LOSARTAN 50 MG TAB PO SCH (09:00)
== END 2022-08-20 16:33 | disposition home or self-care (01) ==
LOC: EC 05:08 → 6NMEDSUR 08:43 → 5NMEDONC 14:48
PROVIDERS: ADMIT Family Medicine; ATTEND Family Medicine
DX: K52.9 Noninfective gastroenteritis and colitis, unspecified (principal); I10 Essential (primary) hypertension; E78.5 Hyperlipidemia, unspecified; I25.2 Old myocardial infarction; I25.10 Atherosclerotic heart disease of native coronary artery without angina pectoris; R79.89 Other specified abnormal findings of blood chemistry; R74.01 Elevation of levels of liver transaminase levels; Z86.73 Personal history of transient ischemic attack (TIA), and cerebral infarction without residual deficits; Z95.1 Presence of aortocoronary bypass graft; Z79.82 Long term (current) use of aspirin; Z79.899 Other long term (current) drug therapy; Z79.02 Long term (current) use of antithrombotics/antiplatelets; Z88.5 Allergy status to narcotic agent
CPT/HCPCS: 96376; 96361; 96374; 96375; 99285; 36415; 80053; 82150; 83605; 83690; 85025; 85610; 85730; 74176; G0378; J2270 ×2; J2405; C9113

== ENCOUNTER 2022-08-20 19:21 | Emergency (ER) | payer MEDICARE ==
[2022-08-20] MEDS ORDERED: SODIUM CHLORIDE 0.9% 1,000 ML IV STA (20:11)
[2022-08-20] MEDS ORDERED: PANTOPRAZOLE 40 MG/10 ML VIAL IVP STA (20:11)
[2022-08-20] MEDS ORDERED: MORPHINE SULFATE 4 MG/ML SYRINGE IVP STA (20:13)
[2022-08-20 20:41] LABS: Basophils % (A) 0 %; Eosinophils % (A) 0 %; HCT 39.3 % (34.0-46.0); HGB 12.9 gm/dL (11.4-16.0); Lymphocytes # (A) 0.7 k/uL (1.0-4.8); Lymphocytes % (A) 9 %; MCH 30.8 pg (25.0-35.0); MCHC 32.9 g/dL (31.0-37.0); MCV 93.5 fL (80.0-100.0); Mean Platelet Volume 8.8; Monocytes # (A) 0.6 k/uL (0-1.0); Monocytes % (A) 7 %; Neutrophils # (A) 7.1 k/uL (1.3-7.7); Neutrophils % (A) 82 %; Platelet Count 158 k/uL (150-450); RDW 14.1 % (11.5-15.5); WBC 8.6 k/uL (3.8-10.6)
[2022-08-20 20:49] LABS: INR 0.9 (<1.2)
[2022-08-20 20:51] LABS: Albumin 3.5 g/dL (3.5-5.0); Potassium 4.1 mmol/L (3.5-5.1); Total Bilirubin 0.3 mg/dL (0.2-1.3)
--- NOTE | 2022-08-20 21:42 | ED ---
Abdominal Pain HPI - General Chief Complaint: Abdominal Pain Stated Complaint: Re-Visit rectal bleeding Time Seen by Provider: 08/20/22 20:02 Source: family Mode of arrival: wheelchair Limitations: no limitations - History of Present Illness Initial Comments: Patient is a 77-year-old female who presents to the emergency department for evaluation of rectal bleeding. Patient was evaluated in the emergency department, admitted, and discharged today for colitis. At the time she presented with mild lower abdominal pain, one episode of nausea and vomiting, and multiple episodes of hematochezia. No fever, no leukocytosis. Hemoglobin was stable. Symptoms remained mild. After multiple normal bowel movements patient was discharged. No indication for antibiotics. Patient states she went home in a depend and soon after arriving home there was bleeding from her rectum which covered the depend. It was not fully saturated. Patient became concerned and came back to the emergency department. She reports no change in symptoms currently. No lightheadedness, dizziness, shortness of breath, chest pain. Patient is on Plavix. - Related Data Home Medications Medication Instructions Recorded Confirmed Atorvastatin [Lipitor] 40 mg PO HS 04/22/20 08/20/22 Clopidogrel Bisulfate [Plavix] 75 mg PO DAILY 04/22/20 08/20/22 Famotidine [Pepcid] 40 mg PO DAILY 04/22/20 08/20/22 LORazepam [Ativan] 1 mg PO BID PRN 04/22/20 08/20/22 Metoprolol Tartrate [Lopressor] 25 mg PO BID 04/22/20 08/20/22 Multivitamins, Thera [Multivitamin 1 tab PO DAILY 10/22/20 08/20/22 (formulary)] Aspirin [Adult Low Dose Aspirin EC] 81 mg PO DAILY 08/20/22 08/20/22 Cholecalciferol [Vitamin D3 (25 50 mcg PO DAILY 08/20/22 08/20/22 Mcg = 1000 Iu)] Losartan Potassium [Cozaar] 100 mg PO DAILY 08/20/22 08/20/22 Pantoprazole [Protonix] 40 mg PO DAILY 08/20/22 08/20/22 Vitamin B Complex 1 cap PO DAILY 08/20/22 08/20/22 amLODIPine [Norvasc] 5 mg PO DAILY 08/20/22 08/20/22 Previous Rx's Medication Instructions Recorded HYDROcodone/APAP 5-325MG [[place] 1 tab PO Q6HR PRN 3 Days #12 tab 08/20/22 5-325] Allergies Allergy/AdvReac Type Severity Reaction Status Date / Time meperidine [From Demerol] AdvReac hypotension Verified 08/20/22 19:56 Review of Systems ROS Statement: Those systems with pertinent positive or pertinent negative responses have been documented in the HPI. ROS Other: All systems not noted in ROS Statement are negative. Past Medical History Past Medical History: CVA/TIA, Hyperlipidemia, Hypertension, Myocardial Infarction ([place]) Additional Past Medical History / Comment(s): having "trouble with my stomach",CVA-2013-no residual Last Myocardial Infarction Date:: 2013 History of Any Multi-Drug Resistant Organisms: ESBL Date of last positivie culture/infection: 02/11/19 MDRO Source:: urine ESBL Past Surgical History: Coronary Bypass/CABG, Hysterectomy, Orthopedic Surgery, Tonsillectomy Additional Past Surgical History / Comment(s): Partial right knee,CABG 2013 Past Anesthesia/Blood Transfusion Reactions: No Reported Reaction Additional Past Anesthesia/Blood Transfusion Reaction / Comment(s): no problems with prior blood transfusion Past Psychological History: No Psychological Hx Reported Smoking Status: Never smoker Past Alcohol Use History: None Reported Past Drug Use History: None Reported - Past Family History Mother Family Medical History: Cancer Additional Family Medical History / Comment(s): breast CA,heart problems Father Additional Family Medical History / Comment(s): heart problems General Exam Limitations: no limitations General appearance: alert, in no apparent distress Head exam: Present: atraumatic, normocephalic, normal inspection Respiratory exam: Present: normal lung sounds bilaterally. Absent: respiratory distress, wheezes, rales, rhonchi, stridor Cardiovascular Exam: Present: regular rate, normal rhythm, normal heart sounds. Absent: systolic murmur, diastolic murmur, rubs, gallop, clicks GI/Abdominal exam: Present: soft, normal bowel sounds. Absent: distended, te nderness, guarding, rebound, rigid Rectal exam: Present: hemorrhoids (External), other (No active bleeding.) Neurological exam: Present: alert, oriented X3, CN II-XII intact Psychiatric exam: Present: normal affect, normal mood Skin exam: Present: warm, dry, intact, normal color. Absent: rash Course Vital Signs 08/20/22 08/20/22 08/20/22 19:54 20:25 21:57 Temperature 97.8 F Pulse Rate 80 92 97 Respiratory 18 16 17 Rate Blood Pressure 125/72 149/91 139/71 O2 Sat by Pulse 95 97 100 Oximetry Medical Decision Making - Medical Decision Making This is a revisit for rectal bleeding. Patient well-appearing and in no apparent distress. No fever. Vitals stable. No abdominal tenderness. No active rectal bleeding. Laboratory studies obtained. Hemoglobin is 12.9, minimally decreased from 13.1 previously. Normal coags. Other laboratory studies are relatively unremar kable. Results discussed with patient. Patient has stable hemoglobin, no active bleeding, no anemia symptoms. She is in stable medical condition for discharge. She very hesitant on going home and would like to be admitted for observation. I spoke with Dr. Larsen in detail who declines admission. Patient and I discussed strict return parameters in detail. She will follow-up with her primary care provider. Dr. Mandujano is my attending. - Lab Data Result diagrams: 08/20/22 20:30 08/20/22 20:30 Lab Results 08/20/22 08/20/22 08/20/22 Range/Units 20:30 20:30 20:30 WBC 8.6 (3.8-10.6) k/uL RBC 4.20 (3.80-5.40) m/uL Hgb 12.9 (11.4-16.0) gm/dL Hct 39.3 (34.0-46.0) % MCV 93.5 (80.0-100.0) fL MCH 30.8 (25.0-35.0) pg MCHC 32.9 (31.0-37.0) g/dL RDW 14.1 (11.5-15.5) % Plt Count 158 (150-450) k/uL MPV 8.8 Neutrophils % 82 % Lymphocytes % 9 % Monocytes % 7 % Eosinophils % 0 % Basophils % 0 % Neutrophils # 7.1 (1.3-7.7) k/uL Lymphocytes # 0.7 L (1.0-4.8) k/uL Monocytes # 0.6 (0-1.0) k/uL Eosinophils # 0.0 (0-0.7) k/uL Basophils # 0.0 (0-0.2) k/uL PT (9.0-12.0) sec INR (<1.2) APTT (22.0-30.0) sec Sodium 133 L (137-145) mmol/L Potassium 4.1 (3.5-5.1) mmol/L Chloride 106 (98-107) mmol/L Carbon Dioxide 18 L (22-30) mmol/L Anion Gap 9 mmol/L BUN 20 H (7-17) mg/dL Creatinine 0.88 (0.52-1.04) mg/dL Est GFR (CKD-EPI)AfAm 75 (>60 ml/min/1.73 sqM) Est GFR (CKD-EPI)NonAf 65 (>60 ml/min/1.73 sqM) Glucose 112 H (74-99) mg/dL Plasma Lactic Acid Riccardo 1.1 (0.7-2.0) mmol/L Calcium 8.0 L (8.4-10.2) mg/dL Total Bilirubin 0.3 (0.2-1.3) mg/dL AST 42 H (14-36) U/L ALT 36 H (4-34) U/L Alkaline Phosphatase 110 (38-126) U/L Total Protein 6.0 L (6.3-8.2) g/dL Albumin 3.5 (3.5-5.0) g/dL Lipase 68 (23-300) U/L Blood Type Blood Type Confirm Blood Type Recheck Bld Type Recheck Status Antibody Screen Spec Expiration Date 08/20/22 08/20/22 08/20/22 Range/Units 20:30 20:44 20:54 WBC (3.8-10.6) k/uL RBC (3.80-5.40) m/uL Hgb (11.4-16.0) gm/dL Hct (34.0-46.0) % MCV (80.0-100.0) fL MCH (25.0-35.0) pg MCHC (31.0-37.0) g/dL RDW (11.5-15.5) % Plt Count (150-450) k/uL MPV Neutrophils % % Lymphocytes % % Monocytes % % Eosinophils % % Basophils % % Neutrophils # (1.3-7.7) k/uL Lymphocytes # (1.0-4.8) k/uL Monocytes # (0-1.0) k/uL Eosinophils # (0-0.7) k/uL Basophils # (0-0.2) k/uL PT 10.0 (9.0-12.0) sec INR 0.9 (<1.2) APTT 27.0 (22.0-30.0) sec Sodium (137-145) mmol/L Potassium (3.5-5.1) mmol/L Chloride (98-107) mmol/L Carbon Dioxide (22-30) mmol/L Anion Gap mmol/L BUN (7-17) mg/dL Creatinine (0.52-1.04) mg/dL Est GFR (CKD-EPI)AfAm (>60 ml/min/1.73 sqM) Est GFR (CKD-EPI)NonAf (>60 ml/min/1.73 sqM) Glucose (74-99) mg/dL Plasma Lactic Acid Riccardo (0.7-2.0) mmol/L Calcium (8.4-10.2) mg/dL Total Bilirubin (0.2-1.3) mg/dL AST (14-36) U/L ALT (4-34) U/L Alkaline Phosphatase (38-126) U/L Total Protein (6.3-8.2) g/dL Albumin (3.5-5.0) g/dL Lipase (23-300) U/L Blood Type A Positive Blood Type Confirm A Positive Blood Type Recheck No Previous Record Bld Type Recheck Status CABO Indicated Antibody Screen NEGATIVE Spec Expiration Date 08/23/20222353 Disposition Clinical Impression: Hematochezia, Abdominal pain Disposition: HOME SELF-CARE Condition: Stable Instructions (If sedation given, give patient instructions): Rectal Bleeding (ED) Additional Instructions: Please follow up with your primary care provider. Return to the emergency department experience new, concerning, or worsening symptoms, including but not limited to, increased rectal bleeding, dizziness, lightheadedness, shortness of breath. Is patient prescribed a controlled substance at d/c from ED?: No Referrals: Jase Ceballos DO [Primary Care Provider] - 1-2 days
[2022-08-20 21:45] VITALS: TEMP 97.8
[2022-08-20 21:59] VITALS: BP 139/71; PULSE 97; RESP 17
== END 2022-08-20 21:59 | disposition home or self-care (01) ==
LOC: EC 19:21
DX: K92.1 Melena (principal); I10 Essential (primary) hypertension; I25.2 Old myocardial infarction; E78.5 Hyperlipidemia, unspecified; Z79.02 Long term (current) use of antithrombotics/antiplatelets; Z79.899 Other long term (current) drug therapy; Z79.82 Long term (current) use of aspirin; Z88.5 Allergy status to narcotic agent
CPT/HCPCS: 36415; 86900; 86901; 80053; 83605; 83690; 85025; 85610; 85730; 86850; 99284; 96374; 96375; 96361; J2270; C9113

== ENCOUNTER 2023-06-24 10:31 | Emergency (ER) | payer MEDICARE, OTHER ==
[2023-06-24 10:50] VITALS: BP 167/81; PULSE 56; RESP 18; TEMP 97.9
--- NOTE | 2023-06-24 11:03 | ED ---
General Adult HPI - General Chief complaint: Extremity Injury, Upper Stated complaint: Fall, right shoulder injury Time Seen by Provider: 06/24/23 10:55 Source: patient, RN notes reviewed, old records reviewed Mode of arrival: ambulatory Limitations: no limitations - History of Present Illness Initial comments: This is a 78-year-old female presents emergency Department complaining of right shoulder pain. Patient states she just missed a step in her garage and fell on her right shoulder on the lateral aspect. Patient states she's unable to lift her arm since she's fallen. Patient denies any chest pain patient was any back pain. Patient denies any neck or head pain. Patient denies hitting her head or neck. Patient states she did hit her right knee but she has full range of motion and no pain at this time she is able to ambulate. - Related Data Home Medications Medication Instructions Recorded Confirmed Atorvastatin [Lipitor] 40 mg PO HS 04/22/20 08/20/22 Clopidogrel Bisulfate [Plavix] 75 mg PO DAILY 04/22/20 08/20/22 Famotidine [Pepcid] 40 mg PO DAILY 04/22/20 08/20/22 LORazepam [Ativan] 1 mg PO BID PRN 04/22/20 08/20/22 Metoprolol Tartrate [Lopressor] 25 mg PO BID 04/22/20 08/20/22 Multivitamins, Thera [Multivitamin 1 tab PO DAILY 10/22/20 08/20/22 (formulary)] Aspirin [Adult Low Dose Aspirin EC] 81 mg PO DAILY 08/20/22 08/20/22 Cholecalciferol [Vitamin D3 (25 50 mcg PO DAILY 08/20/22 08/20/22 Mcg = 1000 Iu)] Losartan Potassium [Cozaar] 100 mg PO DAILY 08/20/22 08/20/22 Pantoprazole [Protonix] 40 mg PO DAILY 08/20/22 08/20/22 Vitamin B Complex 1 cap PO DAILY 08/20/22 08/20/22 amLODIPine [Norvasc] 5 mg PO DAILY 08/20/22 08/20/22 Previous Rx's Medication Instructions Recorded HYDROcodone/APAP 5-325MG [[place] 1 tab PO Q6HR PRN 3 Days #12 tab 08/20/22 5-325] Allergies Allergy/AdvReac Type Severity Reaction Status Date / Time meperidine [From Demerol] AdvReac hypotension Verified 06/24/23 10:47 Review of Systems ROS Statement: Those systems with pertinent positive or pertinent negative responses have been documented in the HPI. ROS Other: All systems not noted in ROS Statement are negative. Past Medical History Past Medical History: CVA/TIA, Hyperlipidemia, Hypertension, Myocardial Infarction ([place]) Additional Past Medical History / Comment(s): having "trouble with my stomach",CVA-2013-no residual Last Myocardial Infarction Date:: 2013 History of Any Multi-Drug Resistant Organisms: ESBL Date of last positivie culture/infection: 02/11/19 MDRO Source:: urine ESBL Past Surgical History: Coronary Bypass/CABG, Hysterectomy, Orthopedic Surgery, Tonsillectomy Additional Past Surgical History / Comment(s): Partial right knee,CABG 2013 Past Anesthesia/Blood Transfusion Reactions: No Reported Reaction Additional Past Anesthesia/Blood Transfusion Reaction / Comment(s): no problems with prior blood transfusion Past Psychological History: No Psychological Hx Reported Smoking Status: Never smoker Past Alcohol Use History: None Reported Past Drug Use History: None Reported - Past Family History Mother Family Medical History: Cancer Additional Family Medical History / Comment(s): breast CA,heart problems Father Additional Family Medical History / Comment(s): heart problems General Exam - General Exam Comments Initial Comments: GENERAL Patient is well-developed and well-nourished. Patient is in mild distress. EYES Patient's pupils are equal and round. Extraocular motion is intact SKIN Unremarkable NEURO The patient is alert and oriented 3 PYSCH Patient has normal interpersonal interactions. MUSCULOSKELETAL Left shoulder is tender in the proximal region and more so on the lateral region. Patient has no scapular tenderness no chest tenderness patient has no neck tenderness on palpation Limitations: no limitations Course Vital Signs 06/24/23 10:45 Temperature 97.9 F Pulse Rate 56 L Respiratory 18 Rate Blood Pressure 167/81 O2 Sat by Pulse 99 Oximetry Medical Decision Making - Medical Decision Making Was pt. sent in by a medical professional or institution (, PA, BOILER WATER TESTER, urgent care, hospital, or [facility]...) When possible be specific @ -No Did you speak to anyone other than the patient for history (EMS, parent, family, police, friend...)? What history was obtained from this source @ -No Did you review nursing and triage notes (agree or disagree)? Why? @ -I reviewed and agree with nursing and triage notes Were old charts reviewed (outside hosp., previous admission, EMS record, old EKG, old radiological studies, urgent care reports/EKG's, [facility] records)? Report findings @ -No old charts were reviewed Differential Diagnosis (chest pain, altered mental status, abdominal pain women, abdominal pain men, vaginal bleeding, weakness, fever, dyspnea, syncope, headache, dizziness, GI bleed, back pain, seizure, CVA, palpatations, mental health, musculoskeletal)? @ -Differential Musculoskeletal Muscular strain, contusion, ligament sprain, fracture, arthritis, septic arthritis, bursitis, cellulitis, muscle spasm, nerve compression, DVT, arterial occlusion, herpes zoster, electrolyte abnormality, tumor.... This is not meant to be in all inclusive list EKG interpreted by me (3pts min.). @ -As above X-rays interpreted by me (1pt min.). @ -X-ray of the shoulder shows a greater trochanter fracture that's nondisplaced CT interpreted by me (1pt min.). @ -Computed tomography scan confirms a greater trochanteric fracture U/S interpreted by me (1pt. min.). @ -None done What testing was considered but not performed or refused? (CT, X-rays, U/S, labs)? Why? @ -None What meds were considered but not given or refused? Why? @ -None Did you discuss the management of the patient with other professionals (professionals i.e. , PA, BOILER WATER TESTER, lab, RT, psych nurse, group social worker, steamboat inspector, teacher, account officer, child support case officer)? Give summary @ -No Was smoking cessation discussed for >3mins.? @ -No Was critical care preformed (if so, how long)? @ -No Were there social determinants of health that impacted care today? How? (Homelessness, low income, unemployed, alcoholism, drug addiction, transportation, low edu. Level, literacy, decrease access to med. care, fpc, rehab)? @ -No Was there de-escalation of care discussed even if they declined (Discuss DNR or withdrawal of care, Hospice)? DNR status @ -No What co-morbidities impacted this encounter? (DM, HTN, Smoking, COPD, CAD, Cancer, CVA, ARF, Chemo, Hep., AIDS, mental health diagnosis, sleep apnea, morbid obesity)? @ -None Was patient admitted / discharged? Hospital course, mention meds given and route, prescriptions, significant lab abnormalities, going to OR and other pertinent info. @ -Fracture of the proximal humerus it's nondisplaced on the right. Patient was put in a sling patient will follow-up with orthopedics Undiagnosed new problem with uncertain prognosis? @ -No Drug Therapy requiring intensive monitoring for toxicity (Heparin, Nitro, Insulin, Cardizem)? @ -No Were any procedures done? @ -No Diagnosis/symptom? @ -Humerus fracture Acute, or Chronic, or Acute on Chronic? @ -Acute Uncomplicated (without systemic symptoms) or Complicated (systemic symptoms)? @ -Complicated Side effects of treatment? @ -No Exacerbation, Progression, or Severe Exacerbation? @ -No Poses a threat to life or bodily function? How? (Chest pain, [place], [place], pneumonia, PE, COPD, DKA, ARF, appy, cholecystitis, CVA, Diverticulitis, Homicidal, Suicidal, threat to staff... and all critical care pts) @ -No Disposition Clinical Impression: Fracture of humerus Disposition: HOME SELF-CARE Instructions (If sedation given, give patient instructions): Arm Fracture in Adults (ED) Is patient prescribed a controlled substance at d/c from ED?: No Referrals: Jacques Ray MD [Medical Doctor] - 1-2 days Time of Disposition: 13:15
--- NOTE | 2023-06-24 11:36 | XR ---
EXAMINATION TYPE: XR shoulder complete RT DATE OF EXAM: 06/24/2023 11:32 AM CLINICAL INDICATION:Female, 78 years old with history of Trauma; H COMPARISON: None TECHNIQUE: XR shoulder complete RT; shoulder was examined in AP, internally rotated and scapular Y p rojections. FINDINGS/IMPRESSION: Curvilinear lucency through the greater tubercle of the proximal humerus concerning for nondisplaced fracture. CT recommended for confirmation further characterization for fracture pattern.
--- NOTE | 2023-06-24 12:56 | CT ---
EXAMINATION TYPE: CT shoulder RT wo con CT DLP: 388.6 mGycm, Automated exposure control for dose reduction was used. DATE OF EXAM: 06/24/2023 12:19 PM COMPARISON: Radiograph same day CLINICAL INDICATION:Female, 78 years old with history of Trauma; PHH, rt shoulder pain after fall TECHNIQUE: Axial images were obtained of the CT shoulder RT wo con, Additional coronal and sagittal r eformatted images and soft tissue and bone window were obtained for review. 3-D reconstruction was cr eated on a separate workstation. Contrast used: mL of , (None if empty) Oral contrast used: (None if empty) FINDINGS: Findings are confirmed there is a minimally displaced right greater tubercle fracture of th e proximal humerus. The remaining visualized portions of the osseous structures appear intact. No chadd dence for displacement. There is a small joint effusion. Portions of the chest no acute process.. Juan Daniel rnotomy wires are present. IMPRESSION: Confirmed findings radiograph there is minimally displaced right greater tuberosity fracture. Small j oint effusion is also present.
== END 2023-06-24 13:24 | disposition home or self-care (01) ==
LOC: EC 10:31
DX: S42.254A Nondisplaced fracture of greater tuberosity of right humerus, initial encounter for closed fracture (principal); E78.5 Hyperlipidemia, unspecified; I10 Essential (primary) hypertension; I25.2 Old myocardial infarction; Z79.899 Other long term (current) drug therapy; Z79.01 Long term (current) use of anticoagulants; Z95.1 Presence of aortocoronary bypass graft; Z88.5 Allergy status to narcotic agent; W10.9XXA Fall (on) (from) unspecified stairs and steps, initial encounter
CPT/HCPCS: 99284

== ENCOUNTER → 2023-10-24 | Outpatient (CLI) | payer MEDICARE, OTHER ==
--- NOTE | 2023-10-25 11:28 | MM ---
Reason for Exam: Screening (asymptomatic). Last mammogram was performed 1 year(s) and 5 month(s) ago. Patient History: Menarche at age 14. First Full-Term at age 23. Hysterectomy at age 36. Postmenopausal. Patient has history of breast feeding. Benign Stereotactic Core Biopsy on the right side. Mother had breast cancer, age 80. Risk Values: Renetta 5 year model risk: 4.0%. NCI Lifetime model risk: 8.0%. Prior Study Comparison: 07/22/2019 Screening Mammogram, [facility]. 05/26/2021 Bilateral Screening Mammogram, [facility]. 05/31/2022 Bilateral MG 3D screening mammo w/cad, [facility]. Tissue Density: The breast tissue is heterogeneously dense. This may lower the sensitivity of mammography. Findings: Analyzed By CAD. There is no suspicious group of microcalcifications or new suspicious mass. Benign-appearing calcifications bilaterally. Overall Assessment: Benign, BI-RAD 2 Management: Screening Mammogram of both breasts in [address] [facility] will attempt to contact patient to return for supplemental views and ultrasound if indicated. Patient should continue monthly self-breast exams. A clinical breast exam by your physician is recommended on an annual basis. This exam should not preclude additional follow-up of suspicious palpable abnormalities. Note on Renetta scores and lifetime risk: 1. A Renetta score greater than 3% is considered moderate risk. If this is the case, consider specialist referral to assess eligibility for a risk reducing agent. 2. If overall lifetime risk for the development of breast cancer is 20% or higher, the patient may qualify for future screening with alternating mammogram and breast MRI. Electronically signed and approved by: Rodo Jang DO
== END | disposition home or self-care (01) ==
LOC: RADMAMWWP 14:09
PROVIDERS: ATTEND Family Medicine
DX: Z12.31 Encounter for screening mammogram for malignant neoplasm of breast (principal); Z80.3 Family history of malignant neoplasm of breast; Z78.0 Asymptomatic menopausal state
CPT/HCPCS: 77063; 77067

== ENCOUNTER → 2024-01-25 | Outpatient (CLI) | payer MEDICARE, OTHER ==
--- NOTE | 2024-01-26 09:02 | US ---
EXAMINATION TYPE: US pelvic complete DATE OF EXAM: 01/25/2024 COMPARISON: 03/14/2019 CLINICAL INDICATION: Female, 78 years old with history of R10.30 LOWER ABDOMINAL PAIN, UNSPECIFIED; T otal hysterectomy pain and UTI TECHNIQUE: Transabdominal (TA EXAM MEASUREMENTS: Uterus: Surgically absent Endometrial Stripe: Surgically absent Right Ovary: Surgically absent Left Ovary: Surgically absent 1. Uterus: Surgically absent 2. Endometrium: Surgically absent 3. Right Ovary: Surgically absent 4. Left Ovary: Surgically absent 5. Bilateral Adnexa: wnl 6. Posterior cul-de-sac: wnl IMPRESSION: 1. Hysterectomy and bilateral oophorectomy. 2. No pelvic mass or free fluid
--- NOTE | 2024-01-26 09:09 | US ---
EXAMINATION TYPE: US abdomen complete DATE OF EXAM: 01/25/2024 COMPARISON: NONE CLINICAL INDICATION: Female, 78 years old with history of R10.30 LOWER ABDOMINAL PAIN, UNSPECIFIED; P ain and UTI TECHNIQUE: Multiple sonographic images of the abdomen are obtained. FINDINGS: EXAM MEASUREMENTS: Liver Length: 17.1 cm Gallbladder Wall: .1 cm CBD: .6 cm Spleen: 9.9 cm Right Kidney: 9.3 x 3.8 x 3.8 cm Left Kidney: 9.7 x 4.8 x 3.5 cm Pancreas: Obscured by bowel gas Liver: Increased attenuation Gallbladder: Echogenic foci seen Evidence for sonographic Owen's sign: No CBD: wnl Spleen: wnl Right Kidney: wnl Left Kidney: wnl Upper IVC: wnl Abd Aorta: wnl The liver is homogenous. The intrahepatic portion of the IVC and proximal abdominal aorta are within normal limits. There is no evidence of cholelithiasis. Common bile duct is unremarkable. The visu alized portions of the pancreas are homogenous. The spleen is unremarkable. Kidneys are symmetric a nd free of hydronephrosis. No renal lesions are seen. IMPRESSION: 1. Pancreas obscured by bowel gas. 2. Borderline hepatomegaly with possible mild fatty infiltration. 3. Cholelithiasis
== END | disposition home or self-care (01) ==
LOC: RADUSWWP 08:42
PROVIDERS: ATTEND Family Medicine
DX: K80.20 Calculus of gallbladder without cholecystitis without obstruction (principal); R14.3 Flatulence; R16.0 Hepatomegaly, not elsewhere classified
CPT/HCPCS: 76700; 76856

== ENCOUNTER → 2024-04-16 | Outpatient (CLI) | payer MEDICARE, OTHER ==
--- NOTE | 2024-04-17 08:30 | XR ---
EXAMINATION TYPE: XR ribs LT w pa chest xray DATE OF EXAM: 04/16/2024 11:43 AM CLINICAL INDICATION:Female, 79 years old with history of G8911,[id number] ACUTE PAIN TRAUMA,THOR PAIN; COMPARISON: None TECHNIQUE: XR ribs LT w pa chest xray; Frontal and oblique views of the ribs with frontal chest radio graph. FINDINGS: The ribs have a normal appearance. No evidence of fracture. Overall, the lungs are clear. The remaining osseous structures are intact. Surgical clips project over the mediastinum and left up per thorax. Sternotomy wires are present. Costochondral cartilage is calcified which limits evaluatio n. Heart is mildly enlarged for size. IMPRESSION: No acute osseous pathology.
--- NOTE | 2024-04-17 08:33 | XR ---
EXAMINATION TYPE: XR thoracic spine complete DATE OF EXAM: 04/16/2024 11:43 AM CLINICAL INDICATION:Female, 79 years old with history of G8911,[id number] ACUTE PAIN TRAUMA,THOR PAIN; [facility] COMPARISON: One day prior TECHNIQUE: XR thoracic spine complete views of the spine in Frontal and lateral projections. FINDINGS: No evidence of acute fracture. Mild wedging of vertebral bodies throughout the thoracic spine.. There is mildly increased kyphotic alignment of the thoracic vertebral bodies. Scattered osteophyte format ion along the anterior and lateral aspects of the vertebral bodies. Neural foramen are patent given l imitations of this exam. Spinal canal appears patent. Atherosclerosis of the arterial vasculature. IMPRESSION: 1. No acute osseous pathology. 2. Moderate multilevel degeneration changes of the spine.
== END | disposition home or self-care (01) ==
LOC: RADXRYALE 11:19
PROVIDERS: ATTEND Family Medicine
DX: G89.11 Acute pain due to trauma (principal); M54.6 Pain in thoracic spine
CPT/HCPCS: 72072

== ENCOUNTER → 2024-10-18 | Outpatient (CLI) | payer MEDICARE, OTHER ==
--- NOTE | 2024-10-18 12:11 | MM ---
Reason for Exam: Clinical finding. Last screening mammogram was performed 11 month(s) ago. Indicated Problems: Lump or thickening of the right side for 5 Year(s). Patient History: Menarche at age 14. First Full-Term at age 23. Hysterectomy at age 36. Postmenopausal. Patient has history of breast feeding. Benign Stereotactic Core Biopsy on the right side. Mother had breast cancer, age 80. Risk Values: Renetta 5 year model risk: 3.9%. NCI Lifetime model risk: 7.4%. Prior Study Comparison: 04/02/2018 Screening Mammogram, [facility]. 07/22/2019 Screening Mammogram, [facility]. 05/26/2021 Bilateral Screening Mammogram, [facility] 05/31/2022 Bilateral MG 3D screening mammo w/cad, [facility]. 10/24/2023 Bilateral MG 3D screening mammo w/cad, [facility]. Tissue Density: The breasts are heterogeneously dense, which may obscure small masses. Findings: Analyzed By CAD. No finding to correlate with palpable abnormality. Overall Assessment: Incomplete: need additional imaging evaluation, BI-RAD 0 Management: Diagnostic Breast Ultrasound of the right breast. Results were given to the patient verbally at the time of exam. Patient should continue monthly self-breast exams. A clinical breast exam by your physician is recommended on an annual basis. This exam should not preclude additional follow-up of suspicious palpable abnormalities. Note on Renetta scores and lifetime risk: 1. A Renetta score greater than 3% is considered moderate risk. If this is the case, consider specialist referral to assess eligibility for a risk reducing agent. 2. If overall lifetime risk for the development of breast cancer is 20% or higher, the patient may qualify for future screening with alternating mammogram and breast MRI. [facility], , 10/18/2024 12:08 PM. Electronically signed and approved by: Rodo Jang DO
--- NOTE | 2024-10-18 12:15 | USB ---
Reason for Exam: Clinical finding. Patient History: Menarche at age 14. First Full-Term at age 23. Hysterectomy at age 36. Postmenopausal. Patient has history of breast feeding. Benign Stereotactic Core Biopsy on the right side. Mother had breast cancer, age 80. Risk Values: Renetta 5 year model risk: 3.9%. NCI Lifetime model risk: 7.4%. Technique: Method: Targeted. Prior Study Comparison: 05/26/2021 Bilateral Screening Mammogram, [facility]. 05/31/2022 Bilateral MG 3D screening mammo w/cad, [facility]. 10/24/2023 Bilateral MG 3D screening mammo w/cad, [facility]. Findings: The area of palpable concern of the right breast, the axilla of the right breast and the retroareolar of the right breast were scanned. Technique utilized:US breast limited RT Image; Ultrasound imaging of: Area of concern, retroareolar region and axilla. Dilated ducts in the area of palpable abnormality. No suspicious solid masses. Overall Assessment: Benign, BI-RAD 2 Management: Screening Mammogram of both breasts in 1 year. A clinical breast exam by your physician is recommended on an annual basis and results should be correlated with mammographic findings. This exam should not preclude additional follow-up of suspicious palpable abnormalities. Results were given to the patient verbally at the time of exam. [facility], , 10/18/2024 12:11 PM. Electronically signed and approved by: Rodo Jang DO
== END | disposition home or self-care (01) ==
LOC: RADMAMWWP 11:04
PROVIDERS: ATTEND Family Medicine
DX: N63.11 Unspecified lump in the right breast, upper outer quadrant (principal); R92.333 Mammographic heterogeneous density, bilateral breasts; Z78.0 Asymptomatic menopausal state; Z80.3 Family history of malignant neoplasm of breast
CPT/HCPCS: 77066; 76642; G0279; 77062